=== PATIENT | female | born 1950 | race Caucasian/White ===

== ENCOUNTER 2018-04-11 09:49 | Day surgery (SDC) | payer OTHER ==
--- NOTE | 2018-04-09 22:40 | EKG ---
Test Date: 2018-04-09 Test Time: 15:24:18 Production Support Engineer: LUZ MEASUREMENT RESULTS: Intervals: Rate: 72 AR: 180 QRSD: 88 QT: 474 QTc: 519 Irene: P: 55 AR: 180 QRS: 26 T: 78 INTERPRETIVE STATEMENTS: Sinus rhythm with premature supraventricular complexes Possible Inferior infarct, age undetermined Prolonged QT Abnormal ECG Compared to ECG 10/11/2004 12:46:00 Atrial premature complex(es) now present Myocardial infarct finding now present Prolonged QT interval now present Electronically Signed On 04-09-18 22:39:25 CDT by Noe Patterson
[2018-04-11] MEDS ORDERED: Ringers Lactate 1,000 ML IV ONE (10:07)
[2018-04-11] MEDS ORDERED: PROPOFOL 200 MG/20 ML VIAL IV ONE (10:47)
[2018-04-11] MEDS ORDERED: LIDOCAINE 2% MPF 5 ML VIAL ONE (10:47)
[2018-04-11] MEDS ORDERED: MIDAZOLAM HCL 2 MG/2 ML INJ ONE (10:47)
[2018-04-11] MEDS ORDERED: FENTANYL CITR 100 MCG/2 ML ONE (10:48)
[2018-04-11] MEDS ORDERED: NEOSTIGMINE 1 MG/ML -5 ML SYRINGE ONE (10:50)
[2018-04-11] MEDS ORDERED: GLYCOPYRROLATE 0.2 MG/ML SYR ONE ×2 (10:50→10:51)
[2018-04-11] MEDS ORDERED: ROCURONIUM 50 MG/5 ML VIAL IV ONE (10:51)
[2018-04-11] MEDS: LIDOCAINE 1% W/EPI 1:100,000 MDV 50 ML VIAL ONE ×2 (11:01→11:56)
[2018-04-11] MEDS ORDERED: EPHEDRINE SULF 50 MG/5 ML SYR ONE (11:47)
[2018-04-11] MEDS ORDERED: DEXAMETHASONE 10 MG/ML VIAL ONE (11:52)
--- NOTE | 2018-04-11 11:59 | P.BOP ---
Preoperative diagnosis: inferior vestibule lesion Postoperative diagnosis: benign, likely fibroma Primary procedure: excision oral vestibular lesion Indirect [employer]man: NONE,NONE Estimated blood loss: <5ml Specimen: R inferior vestibule lesion Findings: path benign Anesthesia: General Complications: None Implants: none Fluids & blood products: crystalloid 800ml Transferred to: Recovery Room Condition: Good
--- NOTE | 2018-04-11 19:02 | OP ---
Date of Procedure: 04/11/2018 Surgeon: Karen Burton MD Preoperative Diagnosis: Right inferior gingival buccal lesion of the oral vestibule. Postoperative Diagnosis: Benign lesion, likely fibroma. Procedure: Excision of lesion with simple closure of the oral vestibule. Indication For Procedure: Ms. Pantoja is a 68-year-old who presented with a painful raised and irr itated appearing lesion, but refused in-office biopsy. The risks, benefits, and alternatives to proc edure were discussed with the patient and her family, who agreed to proceed. Description Of Procedure: The patient was brought to the operating room. She was placed under gener al anesthesia via oral endotracheal tube. The large bite block was placed between the patient's gums and the lower lip was retracted. A moderate 4-5 mm raised lesion was noted, but was not significant ly ulcerated and was somewhat less irritated in appearance compared to her initial presentation. The decision was made to proceed with biopsy or simple excision of the lesion to confirm diagnosis prior to performing a wider excision, the lesion was grasped with forceps and was cut with scissors at its base and sent to pathology. Direct pressure was applied to the site while awaiting the frozen secti on. 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 Electrocautery was then used to obtain hemostasis at the site, and the defect which was 5 x 8 mm was closed in a simple fashion using 4-0 chromic interrupted sutures. The area was then injected with local anesthetic to aid in postoperative pain control. Disposition: The patient to be discharged home later today in the care of her family and is instruct ed to avoid wearing her lower dentures for at least 1 week to allow for healing of the surgical site. She is also instructed in ap propriate oral care. ANTHONY/MODL Voice ID: [id number] Report ID: [id number]
== END 2018-04-11 13:30 | disposition home or self-care (01) ==
LOC: OR 09:49
PROVIDERS: ATTEND Otolaryngology
PROC: 0CB40ZZ Excision of Buccal Mucosa, Open Approach (ICD-10-PCS; principal; 2018-04-11 12:00)
DX: K13.70 Unspecified lesions of oral mucosa (principal); K08.89 Other specified disorders of teeth and supporting structures; I10 Essential (primary) hypertension; E78.00 Pure hypercholesterolemia, unspecified; E03.9 Hypothyroidism, unspecified; K21.9 Gastro-esophageal reflux disease without esophagitis; E55.9 Vitamin D deficiency, unspecified; Z87.891 Personal history of nicotine dependence; Z88.6 Allergy status to analgesic agent; Z88.1 Allergy status to other antibiotic agents
CPT/HCPCS: 40812; 88305; 88331; 93005; J1100; J2250; J2710; J3010

== ENCOUNTER 2019-04-30 06:18 | Day surgery (SDC) | payer OTHER ==
--- NOTE | 2019-04-28 14:47 | EKG ---
Test Date: 2019-04-28 Test Time: 14:20:26 Service Correspondent: LUZ MEASUREMENT RESULTS: Intervals: Rate: 72 CT: 182 QRSD: 88 QT: 394 QTc: 431 Lizemores: P: 56 CT: 182 QRS: 28 T: 7 INTERPRETIVE STATEMENTS: Normal sinus rhythm Nonspecific T wave abnormality Abnormal ECG Compared to ECG 04/09/2018 15:24:18 T-wave abnormality now present Atrial premature complex(es) no longer present Myocardial infarct finding no longer present Prolonged QT interval no longer present Electronically Signed On 04-28-19 14:47:05 CDT by Tariq Palmer
[2019-04-28 15:31] LABS: Absolute Lymphocytes (CBC) 1.1 K/uL (0.7-4.9); Eosinophils % 2.2 % (0-4.4); Hematocrit 32.6 % (36.0-45.0); Lymphocytes % 16.3 % (15.3-44.8); MPV 10.5 fL (7.6-11.3); Monocytes % 8.2 % (3.3-12.3); RBC Red Blood Cell Count 4.14 M/uL (3.86-4.86)
--- OUTSIDE RECORDS SUMMARY | 2019-04-30 06:22 | XMS REPORT | Clinical Summary ---
:1950 Author Organization [facility] Address [address] [place] [address] Care Team Providers Name Role Phone Provider, Unknown Primary Care Provider Unavailable Allergies Active Allergy Reactions Severity Noted Date Comments Cephalexin GI Intolerance 04/11/2019 Morphine Rash Low 04/11/2019 Medications Medication Sig Dispensed Refills Start Date End Date Status cholecalciferol, Take 2,000 0 Active vitamin D3, (VITAMIN Units by D3) 2,000 unit mouth daily. capsule capsule L.acidophilus-Bifido Take by 0 Active .longum (PROBIOTIC mouth. PEARLS) 15 mg (1 billion cell) capsule,delayed release(DR/EC) rosuvastatin Take 40 mg by 0 Active (CRESTOR) 40 MG mouth daily. tablet ezetimibe (ZETIA) 10 Take 10 mg by 0 Active mg tablet mouth daily. metoprolol succinate Take 25 mg by 0 Active XL (TOPROL-XL) 25 mg mouth daily. 24 hr tablet levothyroxine Take 1 tablet 30 tablet 0 04/15/2019 05/15/2019 Active (SYNTHROID, LEVOXYL) (175 mcg 175 mcg tablet total) by mouth daily for 30 days. pantoprazole Take 1 tablet 30 tablet 0 04/15/2019 05/15/2019 Active (PROTONIX) 40 MG EC (40 mg total) tablet by mouth daily for 30 days. aspirin (ECOTRIN) 81 Take 81 mg by 0 04/14/2019 Discontinued MG enteric coated mouth daily. tablet levothyroxine Take 300 mcg 0 04/14/2019 Discontinued (SYNTHROID, LEVOXYL) by mouth 300 mcg tablet every morning. Active Problems Problem Noted Date Gastrointestinal hemorrhage 04/11/2019 Melena 04/10/2019 Overview: Added automatically from request for surgery [id number] Encounters Date Type Specialty Care Team Description Telephone Gastroenterology Jacqueline Govea MA Telephone Gastroenterology Jacqueline Eldridge Surgery Gastroenterology Humberto Kauffman, SMALL BOWEL CAPSULE 9 Anesthesia General Surgery Spring, 9 Event Jessenia Pike CRNA Surgery General Surgery Humberto Kauffman, COLONOSCOPY W/ POLYPECTOMIES 9 Surgery General Surgery Humberto Kauffman, ESOPHAGOGASTRODUODENOSCOPY 9 MD (EGD) Anesthesia General Surgery Hua, 9 Event Roosevelt Garcia MD Orders Only General Internal Sabalbarino 9 Medicine , Tootie Solomon RN Hospital General Internal [facility], Gastrointestinal hemorrhage, unspecified gastrointestinal hemorrhage type (Primary Dx); 9 - Encounter Medicine MD Alyssa Severe anemia; Avilez, Elevated troponin; 9 MD Chrissy Baird Le, MD Gadiraju, [facility], DO after 04/29/2018 Family History Medical History Relation Name Comments Pulmonary embolism Mother Relation Name Status Comments Mother Social History Tobacco Use Types Packs/Day Years Used Date Former Smoker 1.5 50 1968 - 2012 Smokeless Tobacco: Never Used Alcohol Use Drinks/Week oz/Week Comments Never Alcohol Habits Answer Date Recorded How often do you have a drink containing alcohol? Never 04/11/2019 How many drinks containing alcohol do you have on a typical Not asked day when you are drinking? How often do you have six or more drinks on one occasion? Not asked Sex Assigned at Date Recorded Not on file Job Start Date Occupation Industry Not on file Not on file Not on file Travel History Travel Start Travel End No recent travel history available. Last Filed Vital Signs Vital Sign Reading Time Taken Blood Pressure 126/58 04/14/2019 11:55 AM CDT Pulse 90 04/14/2019 11:55 AM CDT Temperature 36.3 C (97.4 F) 04/14/2019 11:55 AM CDT Respiratory Rate 17 04/14/2019 11:55 AM CDT Oxygen Saturation 98% 04/14/2019 11:55 AM CDT Inhaled Oxygen Concentration - - Weight 115 kg (253 lb) 04/10/2019 9:58 PM CDT Height 165.1 cm (5' 5") 04/10/2019 9:58 PM CDT Body Mass Index 42.1 04/10/2019 9:58 PM CDT Plan of Treatment Health Maintenance Due Date Last Done Comments BREAST CANCER SCREENING 1999 COLONOSCOPY SCREENING 1999 SHINGLES VACCINES (#1) 1999 65+ PNEUMOCOCCAL VACCINE (1 of 2 - PCV13) 2014 INFLUENZA VACCINE 06/04/2019 Procedures Procedure Name Priority Date/Time Associated Comments Diagnosis HEMOGLOBIN & HEMATOCRIT Routine 04/14/2019 Results for 5:00 AM CDT this procedure are in the results section. SMALL BOWEL CAPSULE 04/13/2019 Melena 1:15 PM CDT US DUPLEX VENOUS LOWER EXTREMITY Routine 04/13/2019 Results for BILATERAL 9:30 AM CDT this procedure are in the results section. ECHOCARDIOGRAM 2D COMPLETE W Routine 04/13/2019 Results for MMODE SPECTRAL COLOR DOPPLER 8:45 AM CDT this procedure (43421) are in the results section. HEMOGLOBIN & HEMATOCRIT Routine 04/13/2019 Results for 4:45 AM CDT this procedure are in the results section. ESTIMATED GFR Routine 04/13/2019 Results for 4:00 AM CDT this procedure are in the results section. PHOSPHORUS LEVEL Routine 04/13/2019 Results for 4:00 AM CDT this procedure are in the results section. MAGNESIUM LEVEL Routine 04/13/2019 Results for 4:00 AM CDT this procedure are in the results section. BASIC METABOLIC PANEL Routine 04/13/2019 Results for 4:00 AM CDT this procedure are in the results section. HEMOGLOBIN & HEMATOCRIT STAT 04/12/2019 Results for 5:37 PM CDT this procedure are in the results section. HEMOGLOBIN & HEMATOCRIT Timed 04/12/2019 Results for 5:37 PM CDT this procedure are in the results section. SURGICAL PATHOLOGY REQUEST Routine 04/12/2019 Results for 9:40 AM CDT this procedure are in the results section. COLONOSCOPY 04/12/2019 Melena 8:50 AM CDT ESTIMATED GFR Timed 04/12/2019 Results for 4:00 AM CDT this procedure are in the results section. PHOSPHORUS LEVEL Timed 04/12/2019 Results for 4:00 AM CDT this procedure are in the results section. MAGNESIUM LEVEL Timed 04/12/2019 Results for 4:00 AM CDT this procedure are in the results section. BASIC METABOLIC PANEL Timed 04/12/2019 Results for 4:00 AM CDT this procedure are in the results section. HEMOGLOBIN & HEMATOCRIT Timed 04/12/2019 Results for 4:00 AM CDT this procedure are in the results section. T4, FREE Routine 04/11/2019 Results for 4:33 PM CDT this procedure are in the results section. ESTIMATED GFR Routine 04/11/2019 Results for 4:33 PM CDT this procedure are in the results section. PROTHROMBIN TIME WITH INR Routine 04/11/2019 Results for 4:33 PM CDT this procedure are in the results section. THYROID STIMULATING HORMONE Routine 04/11/2019 Results for 4:33 PM CDT this procedure are in the results section. MAGNESIUM LEVEL Routine 04/11/2019 Results for 4:33 PM CDT this procedure are in the results section. PHOSPHORUS LEVEL Routine 04/11/2019 Results for 4:33 PM CDT this procedure are in the results section. BASIC METABOLIC PANEL Routine 04/11/2019 Results for 4:33 PM CDT this procedure are in the results section. HEMOGLOBIN & HEMATOCRIT Routine 04/11/2019 Results for 4:14 PM CDT this procedure are in the results section. TROPONIN Timed 04/11/2019 Results for 4:14 PM CDT this procedure are in the results section. TRANSFUSE RED BLOOD CELLS STAT 04/11/2019 3:14 PM CDT ESOPHAGOGASTRODUODENOSCOPY (EGD) 04/11/2019 Melena 12:00 PM CDT SURGICAL PATHOLOGY REQUEST Routine 04/11/2019 Results for 9:28 AM CDT this procedure are in the results section. TROPONIN Timed 04/11/2019 Results for 4:02 AM CDT this procedure are in the results section. TROPONIN Timed 04/11/2019 Results for 1:02 AM CDT this procedure are in the results section. PREPARE RBC STAT 04/11/2019 Results for 12:43 AM CDT this procedure are in the results section. PREPARE RBC STAT 04/11/2019 Results for 12:43 AM CDT this procedure are in the results section. TYPE AND SCREEN STAT 04/11/2019 Results for 12:43 AM CDT this procedure are in the results section. ECG ED PRELIMINARY Routine 04/10/2019 Results for INTERPRETATION 11:32 PM CDT this procedure are in the results section. ID CRITICAL CARE, E/M 30-74 Routine 04/10/2019 Results for MINUTES 11:32 PM CDT this procedure are in the results section. SMEAR REVIEW STAT 04/10/2019 Results for 11:32 PM CDT this procedure are in the results section. ESTIMATED GFR STAT 04/10/2019 Results for 11:32 PM CDT this procedure are in the results section. B NATRIURETIC PEPTIDE STAT 04/10/2019 Results for 11:32 PM CDT this procedure are in the results section. TROPONIN STAT 04/10/2019 Results for 11:32 PM CDT this procedure are in the results section. COMPREHENSIVE METABOLIC PANEL STAT 04/10/2019 Results for 11:32 PM CDT this procedure are in the results section. HC COMPLETE BLD COUNT W/AUTO STAT 04/10/2019 Results for DIFF 11:32 PM CDT this procedure are in the results section. XR CHEST 2 VW STAT 04/10/2019 Results for 10:34 PM CDT this procedure are in the results section. ECG 12-LEAD STAT 04/10/2019 Results for 9:43 PM CDT this procedure are in the results section. after 04/29/2018 Results Hemoglobin & hematocrit (04/14/2019 5:00 AM CDT)Only the most recent of6 resultswithin the time period is included. HGB 8.7 (L) 12.0 - 16.0 g/dL [facility] HCT 30.5 (L) 37.0 - 47.0 % [facility] Specimen Blood Performing Organization Address City/State/Zipcode Phone Number [facility] DEPARTMENT OF PATHOLOGY AND [address] [place] [address] [place] [address] Us duplex venous lower extremity (04/13/2019 9:30 AM CDT) Specimen Narrative Performed At [facility] Vascular Ultrasound Laboratory Lower Extremity Venous Report [id number] [address] Pat.Name:YIMI DIEGO Pat.ID:[id number] .Date: 04/13/2019 Refer.MD:GIORGIO CARDOSO DO Exam Time: 8:15:00 AMStudy Type:LE Venous Height:65inWeight: 253lb BSA: 2.19 m2 DOBAge:1950,69Y Sex: FEMALESonogrphr: ABIOLA Daly Pat. Stat.:Inpatient Room:[address] TapeVol: ML, CPT - 4: 41475 Echo Event ID:[id number] Order ID:[id number] Reason for Study:Bilateral lower extremities swelling. History of HTN and HLD. Procedures:B-flow imaging, Grayscale/2D, Pulsed wave Doppler Race: SUMMARY: DUPLEX SCAN OBSERVATIONS Deep VeinsSuperficial Veins RightLeft RightLeft GSV (prox) NormalNormal CFV Normal Normal (above knee) Femoral Normal Normal GSV (dist) Normal Normal Profunda Normal Normal (below knee) Popliteal Normal Normal PT (prox) Normal NormalSSV Normal Normal PT (dist) Normal Normal Peroneal Normal Normal RIGHT: There is normal compressibility with no evidence of echogenic material noted within the lumen of the visualized veins.Colorflow and Doppler signals are normal. LEFT: There is normal compressibility with no evidence of echogenic material noted within the lumen of the visualized veins.Colorflow and Doppler signals are normal. PRELIMINARY FINDINGS 1. No evidence of venous thrombosis in the visualized veins. PHYSICIAN INTERPRETATION Venous examination of the both lower extremities demonstrated no evidence of venous thrombosis in the visualized veins.Normal compressibility and augmentation of all veins visualized. Signed 04/13/2019 08:26 PM Rk Yarbrough MD, RPVI Procedure Note Interface, Radiology Results In - 04/13/2019 8:26 PM CDT Vascular Ultrasound Laboratory Lower Extremity Venous Report [address] [place] [address] Pat.Name: YIMI DIEGO Pat.ID: [id number] St.Date: 04/13/2019 Refer.: GIORGIO CARDOSO DO Exam Time: 8:15:00 AM Study Type:LE Venous Height: 65in Weight: 253lb BSA: 2.19 m2 Age: 5 1950,69Y Sex: FEMALE Sonogrphr: ABIOLA Daly Pat. Stat.:Inpatient Room: [address] Tape Vol: ML, CPT - 4: 29018 Echo Event ID:[id number] Order ID: [id number] Reason for Study:Bilateral lower extremities swelling. History of HTN and HLD. Procedures:B-flow imaging, Grayscale/2D, Pulsed wave Doppler Race: SUMMARY: DUPLEX SCAN OBSERVATIONS Deep Veins Superficial Veins Right Left Right Left GSV (prox) Normal Normal CFV Normal Normal (above knee) Femoral Normal Normal GSV (dist) Normal Normal Profunda Normal Normal (below knee) Popliteal Normal Normal PT (prox) Normal Normal SSV Normal Normal PT (dist) Normal Normal Peroneal Normal Normal RIGHT: There is normal compressibility with no evidence of echogenic material noted within the lumen of the visualized veins. Colorflow and Doppler signals are normal. LEFT: There is normal compressibility with no evidence of echogenic material noted within the lumen of the visualized veins. Colorflow and Doppler signals are normal. PRELIMINARY FINDINGS 1. No evidence of venous thrombosis in the visualized veins. PHYSICIAN INTERPRETATION Venous examination of the both lower extremities demonstrated no evidence of venous thrombosis in the visualized veins. Normal compressibility and augmentation of all veins visualized. Signed 04/13/2019 08:26 PM Rk Yarbrough MD, VI Performing Organization Address City/State/Zipcode Phone Number [facility] [address] [place] [address] Echocardiogram complete w contrast and 3D if needed (04/13/2019 8:45 AM CDT) Specimen Narrative Performed At [facility] Echocardiography Report [address] [place] [address] Pat.Name:YIMI DIEGO.ID:[id number] .Date: 04/13/2019 Refer.MD:GIORGIO CARDOSO DO Exam Time: 7:08:00 AMStudy Type:Routine Echo Height:65inWeight: 253lb BSA: 2.19 m2 DOBAge:1950,69Y Sex: FEMALEBP:108/51 HR:72 bpmSonogrphr: Kandace Mcqueen RUST Pat. Stat.:Inpatient Room:[facility] Study Status:Final Echo Event ID:[id number] Order ID:[id number] Reason for Study:Troponin elevation Procedures:2D Echo, Colorflow Doppler, Intravenous Optison Contrast Race:C SUMMARY: LV EF is normal.Estimated EF is 60-64%. RV systolic function is normal. Estimated PA systolic pressure is appx 31 mmHg, assuming a mean RAP of 10 mmHg. FINDINGS: LV: LV size is normal. Concentric left ventricular remodeling. LVEF is normal. Overall wall motion is normal. Estimated EFis 60-64%. RV: RV size is normal. RV systolic function is normal. LA: LA size is normal. RA: RA size is normal. AO: Aortic root diameter is normal. CALLIE: No pericardial effusion. AV: Aortic valve not well seen. MV: Mild mitral annular calcification. Mild mitral regurgitation. PV: Pulmonic valve not well seen. TV: No structural TV abnormalities noted. A trace of tricuspid regurgitation Other:Estimated PA systolic pressure is appx 31 mmHg, assuming a meanRAP of 10 mmHg. MEASUREMENTS: 2D Parasternal [place] Ao An1.6 cmIVSd 1 cm Ao Rtd 2.8 cmIndex1.3 cm/m LVPWd1.2 cm LVOT 1.9 cmLA Ds3.9 cm LVIDd4.9 cmIndex2.2 cm/m LV Jbqu480.5 g(87-129) LVIDs2.9 cmLVM Index 91.6 g/m2 LV%fs 40.8 % RWT0.5 LA Sng Plane LA Area 18.8 cm2(8.8-23.4) LA Vol48.9 ml Index22.3 ml/m LA LngAx 6.2 cm RA Sng Plane RA Area 19.6 cm2(8.3-19.5) RA Vol54.4 ml Index24.8 ml/m RA LngAx 5.9 cm DOPPLER LVOT For Flow LVOT Area2.8 cm2 LVOT SV 62.7 ml DFZGmdOyu299.5 cm/sHR74.6 bpm LVOTpkPG 4.3 mmHgLVOT CO4.7 l/min LVOTmnPG 2.3 mmHgLVOT CI2.1 l/m/m2 LVOT TVI22.1 cm Signed 04/13/2019 02:04 PM Abby Lynn MD Procedure Note Interface, Radiology Results In - 04/13/2019 2:05 PM CDT Echocardiography Report [address] [place] [address] Pat.Name: YIMI DIEGO Pat.ID: [id number] .Date: 04/13/2019 Refer.MD: GIORGIO CARDOSO DO Exam Time: 7:08:00 AM Study Type:Routine Echo Height: 65in Weight: 253lb BSA: 2.19 m2 Age: 6 1950,69Y Sex: FEMALE BP: 108/51 HR: 72 bpm Sonogrphr: IGGY Christianson Pat. Stat.:Inpatient Room: [facility] Study Status:Final Echo Event ID:[id number] Order ID: [id number] Reason for Study:Troponin elevation Procedures:2D Echo, Colorflow Doppler, Intravenous Optison Contrast Race: C SUMMARY: LV EF is normal.Estimated EF is 60-64%. RV systolic function is normal. Estimated PA systolic pressure is appx 31 mmHg, assuming a mean RAP of 10 mmHg. FINDINGS: LV: LV size is normal. Concentric left ventricular remodeling. LV EF is normal. Overall wall motion is normal. Estimated EF is 60-64%. RV: RV size is normal. RV systolic function is normal. LA: LA size is normal. RA: RA size is normal. AO: Aortic root diameter is normal. CALLIE: No pericardial effusion. AV: Aortic valve not well seen. MV: Mild mitral annular calcification. Mild mitral regurgitation. PV: Pulmonic valve not well seen. TV: No structural TV abnormalities noted. A trace of tricuspid regurgitation Other: Estimated PA systolic pressure is appx 31 mmHg, assuming a mean RAP of 10 mmHg. MEASUREMENTS: 2D Parasternal [place] Ao An 1.6 cm IVSd 1 cm Ao Rtd 2.8 cm Index 1.3 cm/m LVPWd 1.2 cm LVOT 1.9 cm LA Ds 3.9 cm LVIDd 4.9 cm Index 2.2 cm/m LV Mass 200.5 g (87-129) LVIDs 2.9 cm LVM Index 91.6 g/m2 LV%fs 40.8 % RWT 0.5 LA Sng Plane LA Area 18.8 cm2 (8.8-23.4) LA Vol 48.9 ml Index 22.3 ml/m LA LngAx 6.2 cm RA Sng Plane RA Area 19.6 cm2 (8.3-19.5) RA Vol 54.4 ml Index 24.8 ml/m RA LngAx 5.9 cm DOPPLER LVOT For Flow LVOT Area 2.8 cm2 LVOT SV 62.7 ml LVOTpkVel 103.5 cm/s HR 74.6 bpm LVOTpkPG 4.3 mmHg LVOT CO 4.7 l/min LVOTmnPG 2.3 mmHg LVOT CI 2.1 l/m/m2 LVOT TVI 22.1 cm Signed 04/13/2019 02:04 PM Abby Lynn MD Performing Organization Address [facility] Cent[facility]ode Phone Number [facility] [address] [place] [address] Estimated GFR (04/13/2019 4:00 AM CDT)Only the most recent of4 resultswithin the time period is included. Estimated GFR 45 (A) mL/min/1.73 [facility] Comment: HOSPITAL CatergoryUnitsInterpretation G1 >=90 Normal or high G2 60-89Mildly decreased A3k56-36Shcwvg to moderately decreased O0x43-80Rvmcesespp to severely decreased G4 15-29Severely decreased G5 <15Kidney failure The eGFR was calculated using the Chronic Kidney Disease Epidemiology Collaboration (CKD-EPI) equation. Interpretation is based on recommendations of the National Kidney Foundation-Kidney Disease Outcomes Quality Initiative (NKF-KDOQI) published in 2014. Specimen Plasma specimen Performing Organization Address [facility] Phone Number [facility] DEPARTMENT OF PATHOLOGY AND [address] [place] [phone] [place] [phone] Phosphorus level (04/13/2019 4:00 AM CDT)Only the most recent of3 resultswithin the time period is included. Phosphorus 4.6 (H) 2.4 - 4.5 mg/dL [facility] Specimen Plasma specimen Performing Organization Address [facility] Centercode Phone Number [facility] DEPARTMENT OF PATHOLOGY AND [address] [place] [phone] Magnesium level (04/13/2019 4:00 AM CDT)Only the most recent of3 resultswithin the time period is included. Magnesium 2.1 1.6 - 2.4 mg/dL [facility] Specimen Plasma specimen Performing Organization Address [facility] Centercode Phone Number [facility] DEPARTMENT OF PATHOLOGY AND [address] [place] [phone] [place] [address] Basic metabolic panel (04/13/2019 4:00 AM CDT)Only the most recent of3 resultswithin the time period is included. Pathologist [facility] Sodium 142 135 - 148 mEq/L [facility] Potassium 3.9 3.5 - 5.0 mEq/L [facility] Chloride 104 98 - 112 mEq/L [facility] CO2 23 (L) 24 - 31 mEq/L [facility] Anion gap 15@ANIO 7 - 15 mEq/L [facility] BUN 10 8 - 23 mg/dL [facility] Creatinine 1.21 (H) 0.50 - 0.90 mg/dL [facility] Glucose 88 65 - 99 mg/dL [facility] Calcium 8.9 8.8 - 10.2 mg/dL [facility] Specimen Plasma specimen Performing Organization Address [facility] Centercoid Phone Number [facility] DEPARTMENT OF PATHOLOGY AND [address] [place] [phone] Surgical pathology request (04/12/2019 9:40 AM CDT)Only the most recent of2 resultswithin the time period is included. Pathologist [facility] DEPARTMENT OF PATHOLOGY AND GENOMIC MEDICINE Surgical pathology See link below [facility] DEPARTMENT OF report for PDF Lab PATHOLOGY AND Report GENOMIC MEDICINE Result status This is Final [facility] DEPARTMENT OF Report for PATHOLOGY AND [id number] GENOMIC MEDICINE Specimen Performing Organization Address [facility] Centercode Phone Number [facility] DEPARTMENT OF PATHOLOGY AND [address] [place] [phone] GENOMIC MEDICINE Prothrombin time with INR (04/11/2019 4:33 PM CDT) Pathologist [facility] Prothrombin time 14.0 11.5 - 14.5 [facility] INR 1.1 [place] Comment: ROMAN CATHOLIC [facility] International Normalized Ratio (INR) is a therapeutic HOSPITAL monitoring tool for patients who are stable on oral anticoagulant therapy. An INR of 2.0-3.0 is suggested for deep vein thrombosis/pulmonary embolism. Specimen Blood Performing Organization Address [facility] Centercode Phone Number [facility] DEPARTMENT OF PATHOLOGY AND [address] [place] [address] Thyroid stimulating hormone (04/11/2019 4:33 PM CDT) [facility] TSH 30.54 (H) 0.27 - 4.20 uIU/mL [facility] Specimen Plasma specimen Performing Organization Address [facility] Centercode Phone Number [facility] DEPARTMENT OF PATHOLOGY AND [address] [place] [address] T4, free (04/11/2019 4:33 PM CDT) [facility] T4, free 1.2 0.9 - 1.7 ng/dL [facility] Specimen Plasma specimen Performing Organization Address [facility] Phone Number [facility] DEPARTMENT OF PATHOLOGY AND [address] [place] [address] Troponin (04/11/2019 4:14 PM CDT)Only the most recent of4 resultswithin the time period is included. [facility] Troponin 0.347 (H) 0.000 - 0.040 [facility] Comment: ng/mL [facility] changed methodology effective: 03/10/2019 at 10:00 am The new method has a 99th percentile cutoff of 0.040 ng/mL Specimen Plasma specimen Performing Organization Address [facility] Phone Number [facility] DEPARTMENT OF PATHOLOGY AND [address] [place] [address] Transfuse RBC (04/11/2019 3:14 PM CDT)Only the most recent of2 resultswithin the time period is included.Prepare RBC, 1 Units (04/11/2019 12:43 AM CDT)Only the most recent of2 resultswithin the time period is included. [facility] Product name Red Blood Cells [facility] -1, [facility] Unit number [id number] [facility] Product code [id number] [facility] Dispense status Transfused [facility] Blood expiration [id number] [facility] Blood type code 6200 [facility] Blood type A POSITIVE [facility] Specimen Blood Performing Organization Address City/[facility] Centercode Phone Number [facility] DEPARTMENT OF PATHOLOGY AND [address] [place] [phone] [address] Type and screen (04/11/2019 12:43 AM CDT) ABO grouping A [facility] Rh type POS [facility] Antibody screen (gel) NEG [facility] Specimen Blood Performing Organization Address [facility] Centercode Phone Number [facility] DEPARTMENT OF PATHOLOGY AND [address] [place] [id number] ECG ED Preliminary Interpretation - Not an Order (04/10/2019 11:32 PM CDT) Narrative Performed At Alyssa Cuenca MD 04/11/20194:25 AM ECG ED Preliminary Interpretation - Not an Order Performed by: Alyssa Cuenca MD Authorized by: Alyssa Cuenca MD ECG reviewed by ED Physician in the absence of a assistant auditor: yes Interpretation: Interpretation: abnormal Rate: ECG rate:89 ECG rate assessment: normal Rhythm: Rhythm: sinus rhythm Ectopy: Ectopy: none QRS: QRS axis:Normal QRS intervals:Normal Conduction: Conduction: normal ST segments: ST segments:Non-specific T waves: T waves: non-specific CRITICAL CARE (04/10/2019 11:32 PM CDT) Narrative Performed At Alyssa Cuenca MD 04/11/20194:25 AM Critical Care Performed by: Alyssa Cuenca MD Authorized by: Alyssa Cuenca MD Critical care provider statement: Critical care time (minutes):35 Critical care time was exclusive of:Separately billable procedures and treating other patients and teaching time Critical care was necessary to treat or prevent imminent or life-threatening deterioration of the following conditions: GI hemorrhage Critical care was time spent personally by me on the following activities:Development of treatment plan with patient or surrogate, discussions with consultants, discussions with primary provider, evaluation of patient's response to treatment, examination of patient, review of old charts, re-evaluation of patient's condition, pulse oximetry, ordering and review of radiographic studies, ordering and review of laboratory studies and ordering and performing treatments and interventions Tawanda 'yes' if you are taking over critical care for this patient from another provider.: no Smear review (04/10/2019 11:32 PM CDT) Platelet slide review Iris adequate [facility] Anisocytosis Moderate [facility] Polychromasia Moderate [facility] Enlarged platelets Moderate (A) [facility] Specimen Performing Organization Address City/State/Zipcode Phone Number [facility] DEPARTMENT OF PATHOLOGY AND [address] [place] [address] GENOMIC MEDICINE [facility] [address] [place] [address] CBC with platelet and differential (04/10/2019 11:32 PM CDT) WBC 9.61 4.50 - 11.00 [facility] RBC 2.84 (L) 4.20 - 5.50 [facility] HGB 6.7 (LL) 12.0 - 16.0 [facility] Comment: g/dL [facility] HGB results called to and read back by DUSTIN DURAN/ELIZ at 04/10/201923: 55 by [email or web address]. HCT 24.4 (L) 37.0 - 47.0 % [facility] MCV 85.9 82.0 - 100.0 [facility] MCH 23.6 (L) 27.0 - 34.0 [facility] MCHC 27.5 (L) 31.0 - 37.0 [facility] RDW - SD 50.9 37.0 - 55.0 [facility] MPV 12.1 8.8 - 13.2 [facility] Platelet count 238 150 - 400 [facility] Nucleated RBC 0.00 /100 WBC [facility] Neutrophils 69.2 (H) 39.0 - 69.0 % [facility] Lymphocytes 21.0 (L) 25.0 - 45.0 % [facility] Monocytes 7.1 0.0 - 10.0 % [facility] Eosinophils 1.8 0.0 - 5.0 % [facility] Basophils 0.5 0.0 - 1.0 % [facility] Immature granulocytes 0.4Comment: 0.0 - 1.0 % [facility] "Immature HOSPITAL granulocytes" (promyelocytes, myelocytes, metamyelocytes) Specimen Blood Performing Organization Address City/State/Zipcode Phone Number [facility] DEPARTMENT OF PATHOLOGY AND [address] [place] [address] [address] B natriuretic peptide (04/10/2019 11:32 PM CDT) BNP 89 0 - 100 pg/mL [facility] Specimen Blood Performing Organization Address City/[facility]/Zipcode Phone Number [facility] DEPARTMENT OF PATHOLOGY AND [address] [place] [id number] [address] Comprehensive metabolic panel (04/10/2019 11:32 PM CDT) Pathologist [facility] Sodium 139 135 - 148 [facility] mEq/L [facility] Potassium 3.7 3.5 - 5.0 [facility] mEq/L [facility] Chloride 101 98 - 112 mEq/L [facility] CO2 23 (L) 24 - 31 mEq/L [facility] Anion gap 15@ANIO 7 - 15 mEq/L [facility] BUN 17 8 - 23 mg/dL [facility] Creatinine 1.11 (H) 0.50 - 0.90 [facility] mg/dL HOSPITAL Glucose 117 (H) 65 - 99 mg/dL [facility] Calcium 9.4 8.8 - 10.2 [facility] mg/dL [facility] Protein 7.7 6.3 - 8.3 g/dL [facility] Comment: HOSPITAL [place] 4.6-7.0 g/dL 1 week 4.4-7.6 g/dL 7 months-1year5.1-7.3 g/dL 1-2 years5.6-7.5 g/dL >3 years6.0-8.0 g/dL 18-150 6.3-8.3 g/dL Albumin 4.0 3.5 - 5.0 g/dL [facility] A/G ratio 1.1 0.7 - 3.8 [facility] Alkaline phosphatase 83 35 - 104 U/L [facility] AST 29 10 - 35 U/L [facility] ALT 27 5 - 50 U/L [facility] Total bilirubin 0.3 0.0 - 1.2 [facility] mg/dL HOSPITAL Specimen Plasma specimen Performing Organization Address City/[facility]/Zipcode Phone Number [facility] DEPARTMENT OF PATHOLOGY AND [address] [place] [address] GENOMIC MEDICINE [facility] [address] [place] [address] XR Chest 2 Vw (04/10/2019 10:34 PM CDT) Specimen Narrative Performed At EXAMINATION: XR CHEST 2 VW [facility] CLINICAL HISTORY: Shortness of breath COMPARISON:None. IMPRESSION: The lungs are clear. No pleural effusion or pneumothorax. Cardiac silhouette is mildly enlarged. Thoracic aorta atherosclerotic calcifications. Diffuse osteopenia. No acute osseous abnormalities. [id number] Procedure Note Hm Interface, Radiology Results Incoming - 04/10/2019 10:47 PM CDT EXAMINATION: XR CHEST 2 VW CLINICAL HISTORY: Shortness of breath COMPARISON: None. IMPRESSION: The lungs are clear. No pleural effusion or pneumothorax. Cardiac silhouette is mildly enlarged. Thoracic aorta atherosclerotic calcifications. Diffuse osteopenia. No acute osseous abnormalities. [id number] Performing Organization Address [facility] Phone Number [facility] [address] [place] [address] ECG 12 lead (04/10/2019 9:43 PM CDT) Ventricular rate 89 [facility] MUSE Atrial rate 89 [facility] MUSE ID interval 172 [facility] MUSE QRSD interval 82 [facility] MUSE QT interval 394 [facility] QTC interval 479 [facility] MUSE P axis 1 56 HM MUSE QRS axis 1 34 [facility] MUSE T wave axis 38 [facility] MUSE EKG impression Normal sinus [facility] MUSE rhythm-Nonspecific ST and T wave abnormality-Abnormal ECG-No previous ECGs available-Electronicall y Signed By Keny Gonzáles MD ([id number]) on 04/12/2019 4:38:51 PM Specimen Narrative Performed At Performing Organization Address City/[facility]/Zipcode Phone Number [facility] MUSE [address] [place] [address] after 04/29/2018 Insurance Payer Benefit Plan / Subscriber ID Effective Dates Phone Address Type Group MEDICARE MEDICARE PART A AND xxxxxxxxxxx 2014-[place], [place] Medicare B t AETNA A[facility]NA [facility] x[facility] 2013-[place] Advance Directives Patient has advance care planning documents on file. For more information, please contact:Immanuel Gaston[address] [place] [phone]
[2019-04-30] MEDS ORDERED: Ringers Lactate 1,000 ML IV ONE (06:51)
[2019-04-30] MEDS ORDERED: PROPOFOL 200 MG/20 ML VIAL IV ONE (07:14)
[2019-04-30] MEDS ORDERED: FENTANYL CITR 100 MCG/2 ML ONE (07:14)
[2019-04-30] MEDS ORDERED: LIDOCAINE 2% MPF 5 ML VIAL ONE (07:15)
[2019-04-30] MEDS ORDERED: ONDANSETRON 4 MG/2 ML VIAL ONE (07:16)
[2019-04-30] MEDS ORDERED: ROCURONIUM 50 MG/5 ML VIAL IV ONE (07:16)
[2019-04-30] MEDS ORDERED: LIDOCAINE 1% W/EPI 1:100,000 MDV 50 ML VIAL ONE (07:22)
--- NOTE | 2019-04-30 08:03 | P.BOP ---
Preoperative diagnosis: oral cavity mass Postoperative diagnosis: same Primary procedure: excision without closure, oral vestible, 1.5cm defect X Ray Control Equipment Repairer: NONE,NONE Estimated blood loss: <2ml Specimen: lower GB sulcus, suture tao anterior aspect, fresh to path Anesthesia: General Complications: None Implants: none Fluids & blood products: see anesthesia records Transferred to: Recovery Room Condition: Good
--- NOTE | 2019-04-30 17:25 | OP ---
Date of Procedure: 04/30/2019 Surgeon: Karen Burton MD Preoperative Diagnosis: Recurrent mouth lesion. Postoperative Diagnosis: Recurrent mouth lesion. Pathology pending. Prior pathology, abnormal lymph ocyte infiltration. Indication For Procedure: Ms. Pantoja previously underwent a biopsy of the right lower gingiva buc sameer sulcus adjacent to the midline for presumed dental ulcer with concern for possible squamous cell carcinoma. The biopsy showed abnormal lymphocyte infiltration and the area initially healed without issue. Several months later, she presented with recurrence of the lesion with notable induration, ul ceration, and pain. She desired rebiopsy and excision of the lesion for further analysis. In other clinical information, the patient was recently hospitalized in [place] for severe anemia and required transfusion with 3 units of packed red cells. The exact cause of her anemia is uncertain. She did undergo colonoscopy which, showed a polyp and is pending re-evaluation for that. Description Of Procedure: The patient was brought to the operating room. She was placed under gener al anesthesia via LMA. The bite block was placed, the lower lip was retracted and an approximately 8 mm indurated mucosal lesion in the gingival buccal sulcus just right of midline was identified. The Bovie electrocautery was used to excise full-thickness mucosa with a narrow mucosal margin. A sutur e was placed at the anterior most aspect and specimen was sent fresh to pathology for further evaluat ion. Bleeding was controlled with Bovie electrocautery and direct pressure. The area was approximat leydi 1.5 cm and after consideration was left open to heal by granulation. Blood Loss: Nil. Disposition: The patient returned to care of anesthesia for awakening and extubation in the operatin g room and will be discharged home later today and follow up with Dr. Burton in about 2 weeks for di scussion of pathology and evaluation of wound healing, local wound care including routine oral care, soft diet and liquid diet are discussed with the patient's daughter. ANTHONY/LAURA Voice ID: [id number] Report ID: [id number]
== END 2019-04-30 09:15 | disposition home or self-care (01) ==
LOC: OR 06:18
PROVIDERS: ATTEND Otolaryngology
PROC: 0CB6XZZ Excision of Lower Gingiva, External Approach (ICD-10-PCS; principal; 2019-04-30 07:30)
DX: K13.79 Other lesions of oral mucosa (principal); K08.89 Other specified disorders of teeth and supporting structures; Z87.891 Personal history of nicotine dependence; E03.9 Hypothyroidism, unspecified; E55.9 Vitamin D deficiency, unspecified; E78.00 Pure hypercholesterolemia, unspecified; I10 Essential (primary) hypertension; Z79.899 Other long term (current) drug therapy
CPT/HCPCS: 41825; 93005; 85025; 36415; 88305; J2704; J3010; J2405

== ENCOUNTER 2022-05-22 22:21 | Emergency (ER) | payer OTHER ==
--- NOTE | 2022-05-22 23:36 | EDPHYS ---
Physician Documentation [facility] Name: Carla Pantoja Age: 72 yrs Sex: Female : 1950 Arrival Date: 05/22/2022 Time: 22:24 Bed Waiting Private MD: ED Physician Bruno Jessica HPI: 05/22 22:41 This 72 yrs old Female presents to ER via Ambulatory with complaints of Head rn Injury-Adult, Headache. 23:33 The patient or guardian reports pain, tenderness. The complaints affect the top of rn head. Context of injury: The problem was sustained at home, resulted from a direct blow, a heavy object, a solid object. Onset: The symptoms/episode began/occurred today. Severity of symptoms: At their worst the symptoms were mild, in the emergency department the symptoms are unchanged. The patient has not experienced similar symptoms in the past. The patient has not recently seen a physician. Pt reports lawn equipment, either weed eater or edger, fell on her head while in shed, no LOC, not on blood thinners, tylenol didn't help pain. Remembers all events. NO focal neuro complaints. . Historical: - Allergies: 22:36 Morphine; hb - Immunization history:: Adult Immunizations up to date. - Social history:: Smoking status: Patient denies any tobacco usage or history of. - Family history:: not pertinent. - Hospitalizations: : No recent hospitalization is reported. ROS: 23:33 Constitutional: Negative for fever, chills, and weight loss, Neck: Negative for injury, rn pain, and swelling, Cardiovascular: Negative for chest pain, palpitations, and edema, Respiratory: Negative for shortness of breath, cough, wheezing, and pleuritic chest pain, Abdomen/GI: Negative for abdominal pain, nausea, vomiting, diarrhea, and constipation, Back: Negative for injury and pain, MS/Extremity: Negative for injury and deformity, Skin: Negative for injury, rash, and discoloration, Neuro: + headache Exam: 23:33 Constitutional: This is a well developed, well nourished patient who is awake, alert, rn and in no acute distress. Head/Face: Normocephalic, mild tenerness top of head, no open wounds Eyes: Pupils equal round and reactive to light, extra-ocular motions intact.Periorbital areas with no swelling, redness, or edema. Neck: No midline tenderness Neuro: Awake and alert, GCS 15, oriented to person, place, time, and situation. Cranial nerves II-XII grossly intact. Motor strength 5/5 in all extremities. Sensory grossly intact. Cerebellar exam normal. Normal gait. Vital Signs: 22:33 BP 174 / 77; Pulse 91; Resp 16; Temp 97.4; Pulse Ox 100% on R/A; Weight 110.68 kg; hb Height 5 ft. 5 in. (165.10 cm); Pain 5/10; 22:33 Body Mass Index 40.60 (110.68 kg, 165.10 cm) hb Pio Coma Score: 23:33 Eye Response: spontaneous(4). Verbal Response: oriented(5). Motor Response: obeys rn commands(6). Total: 15. 23:33 Eye Response: spontaneous(4). Verbal Response: oriented(5). Motor Response: obeys rn commands(6). Total: 15. MDM: 22:31 Patient medically screened. rn 23:33 Differential diagnosis: Contusion of Hematoma on Intracranial bleed- Concussion rn cerebral contusion. Data reviewed: vital signs, nurses notes, radiologic studies, CT scan, and as a result, I will discharge patient. Counseling: I had a detailed discussion with the patient and/or guardian regarding: the historical points, exam findings, and any diagnostic results supporting the discharge/admit diagnosis, radiology results, the need for outpatient follow up, to return to the emergency department if symptoms worsen or persist or if there are any questions or concerns that arise at home. Response to treatment: the patient's symptoms have mildly improved after treatment, and as a result, I will discharge patient. Special discussion: Based on the patient's history, exam and DX evaluation, there is no indication for emergent intervention or inpatient [place]. It is understood by the patient/guardian that if the SXs persist or worsen they need to return immediately for re-evaluation. I discussed with the patient/guardian in detail that at this point there is no indication for admission to the hospital. It is understood, however, that if the symptoms persist or worsen the patient needs to return immediately for re-evaluation. ED course: CT head neg for acute traumatic finding. . 05/22 22:36 Order name: CT Head Brain wo Cont rn Administered Medications: No medications were administered Disposition Summary: 05/22/22 23:35 Discharge Ordered Location: Home rn Problem: new rn Symptoms: have improved rn Condition: Stable rn Diagnosis - Unspecified injury of head, initial encounter rn Followup: rn - With: Private Physician - When: As needed - Reason: Recheck today's complaints, Re-evaluation by your physician Discharge Instructions: - Discharge Summary Sheet rn - Head Injury, Adult rn Forms: - Medication Reconciliation Form rn - Thank You Letter rn - Antibiotic nicu rn - Prescription Opioid Use rn Signatures: Dispatcher [employer] Brnuo Smith MD MD rn Baxter, Heather, RN RN
--- NOTE | 2022-05-22 23:36 | ER ---
Nurse's Notes [facility] Name: Carla Pantoja Age: 72 yrs Sex: Female : 1950 Arrival Date: 05/22/2022 Time: 22:24 Bed Waiting Private MD: Diagnosis: Unspecified injury of head, initial encounter Presentation: 05/22 22:32 Chief complaint: Electric weed eater fell on head, c/o headache 5/10. Negative LOC. hb Denies N/V/dizziness. 22:33 Coronavirus screen: At this time, the client does not indicate any symptoms associated hb with coronavirus-19. 22:33 Method Of Arrival: Ambulatory hb 22:34 Ebola Screen: No symptoms or risks identified at this time. Initial Sepsis Screen: Does hb the patient meet any 2 criteria? No. Patient's initial sepsis screen is negative. Does the patient have a suspected source of infection? No. Patient's initial sepsis screen is negative. Risk Assessment: Do you want to hurt yourself or someone else? Patient reports no desire to harm self or others. Onset of symptoms was May 22, 2022. 22:34 Acuity: LAUREEN 4 hb Triage Assessment: 22:36 General: Appears in no apparent distress. Behavior is calm, cooperative. Pain: Pain hb currently is 5 out of 10 on a pain scale. Neuro: Level of Consciousness is awake, alert, obeys commands, Oriented to person, place, time, situation. Cardiovascular: Patient's skin is warm and dry. Respiratory: Respiratory effort is even, unlabored, Respiratory pattern is regular, symmetrical. Historical: - Allergies: 22:36 Morphine; hb - Immunization history:: Adult Immunizations up to date. - Social history:: Smoking status: Patient denies any tobacco usage or history of. - Family history:: not pertinent. - Hospitalizations: : No recent hospitalization is reported. Screenin:45 Abuse screen: Denies threats or abuse. Denies injuries from another. Nutritional hb screening: No deficits noted. Tuberculosis screening: No symptoms or risk factors identified. Fall Risk None identified. Assessment: 22:38 General: Appears in no apparent distress. Behavior is calm, cooperative. Neuro: Level hb of Consciousness is awake, alert, obeys commands, Oriented to person, place, time, situation. Cardiovascular: Patient's skin is warm and dry. Respiratory: Respiratory effort is even, unlabored, Respiratory pattern is regular, symmetrical. 23:43 Reassessment: Patient appears in no apparent distress at this time. No changes from hb previously documented assessment. Patient and/or family updated on plan of care and expected duration. Pain level reassessed. Vital Signs: 22:33 BP 174 / 77; Pulse 91; Resp 16; Temp 97.4; Pulse Ox 100% on R/A; Weight 110.68 kg; hb Height 5 ft. 5 in. (165.10 cm); Pain 5/10; 22:33 Body Mass Index 40.60 (110.68 kg, 165.10 cm) hb Everett Coma Score: 23:33 Eye Response: spontaneous(4). Verbal Response: oriented(5). Motor Response: obeys rn commands(6). Total: 15. 23:33 Eye Response: spontaneous(4). Verbal Response: oriented(5). Motor Response: obeys rn commands(6). Total: 15. ED Course: 22:24 Patient arrived in ED. bp1 22:31 Bruno Jessica MD is Attending Physician. rn 22:36 Triage completed. hb 22:36 Arm band placed on. hb 22:45 Patient has correct armband on for positive identification. hb 22:56 CT Head Brain wo Cont In Process Unspecified. EDMS 23:43 Gracy Magaña, RN is Primary Nurse. hb 23:44 No provider procedures requiring assistance completed. Patient did not have IV access hb during this emergency room visit. Administered Medications: No medications were administered Medication: 23:43 VIS not applicable for this client. hb Outcome: 23:35 Discharge ordered by . rn 23:44 Discharged to home ambulatory, with family. hb 23:44 Condition: stable 23:44 Discharge instructions given to patient, Instructed on discharge instructions, follow up and referral plans. Demonstrated understanding of instructions, follow-up care. 23:44 Patient left the ED. hb Signatures: Dispatcher [employer] EDMS Bruno Jessica MD MD rn Baxter, Heather, RN RN hb Mary Beth Best bp1 Corrections: (The following items were deleted from the chart) 22:36 22:33 Chief complaint: Electric weed eater fell on head, c/o headache 6/10. Negative hb LOC. Denies N/V/dizziness. hb 22:36 22:33 BP 174 / 77; Pulse 91bpm; Resp 16bpm; Pulse Ox 100% RA; Temp 97.4F; hb hb
[2022-05-23 00:28] VITALS: BP 174/77; TEMP 97.4; O2SAT 100
--- NOTE | 2022-05-23 13:08 | RAD REPORT ---
EXAM DESCRIPTION: Head Brain Wo Cont CLINICAL HISTORY: 72 years Female, head injury, lawn equipment fell on head TECHNIQUE: Helical CT axial images are obtained from the base of skull through the vertex without IV contrast. Multiplanar reconstruction. This exam was performed according to our departmental dose-opt imization program, which includes automated exposure control, adjustment of the mA and/or kV accordin g to patient size and/or use of iterative reconstruction technique. COMPARISON: None. FINDINGS: BRAIN: No infarcts. No parenchymal hemorrhage, intra-axial mass, mass effect, or midline s hift. No abnormal extra-axial fluid collections. VENTRICLES: Ventricles are normal in size and configuration. No hydrocephalus. CALVARIUM: Bone windows show no skull fracture or calvarial lesions. PARANASAL SINUSES AND MASTOIDS: Visualized paranasal sinuses are clear. Mastoid air cells are clear . IMPRESSION: 1. No acute intracranial disease. Electronically signed by: Oli Amado MD 05/22/2022 11:25 PM CDT Due to temporary technical issues with the PACS/Fluency reporting system, reports are being signed by the in house radiologists without review as a courtesy to insure prompt reporting. The interpreting radiologist is fully responsible for the content of the report.
--- OUTSIDE RECORDS SUMMARY | 2022-05-24 14:56 | XMS REPORT | Continuity of Care Document ---
:1950 Author Organization [facility] t Address [address] [place] [address] Dr. Henri[address] [place] [address] Care Team Providers Name Role Phone Provider Primary Care Physician Unavailable Donaldo Attending Clinician Unavailable ANDRÉS Attending Clinician Unavailable COY BOWEN Attending Clinician Unavailable Therapy, Covid Infusion Attending Clinician Unavailable Andrés ANAYA, A Attending Clinician Aman BOWEN Attending Clinician Unavailable Doctor Unassigned, Name Attending Clinician Unavailable Devin Admitting Clinician Unavailable COY BOWEN Admitting Clinician Unavailable Payers Payer Name Policy Type Policy Number Effective Date Expiration Date S claudia MEDICARE PART A [id number] 2014 \T\ B 00:00:00 [employer] INDEMNITY [id number] 2017 00:00:00 MEDICARE PART A [id number] \T\ [id number] - MEDICARE INDEMNITY/TRADITIO [id number] NAL CHOICE - [employer] MEDICARE A B [id number] 2014 00:00:00 [employer] INDEMNITY [id number] 2017 NON CONTR 00:00:00 Problems Condition Condition Condition Status Onset Resolution Last Treating Co mments Source Name Details Category Date Date Treatment Clinician Date Abdominal Abdominal Disease Active Uni vers pain pain 4-23 ity of 00:00: [address] Gastrointe Gastrointe Disease Active M ethodi stinal stinal 6-08 st hemorrhage hemorrhage 00:00: Ho spita 00 l Melena Melena Disease Active Overview: Method i 04-[address] 00:00: g of this Hospita 00 note l might be different from the original. Added automatic ally from request for surgery [id number] Allergies, Adverse Reactions, Alerts Allergy Allergy Status Severity Reaction(s) Onset Inactive Treating Comm ents Source Name Type Date Date Clinician CEPHALEX Allergy Active [facility]a [facility] 00 [place] Cephalex Drug Active Nausea Only [facility]era 12[facility]04 [facility] nce 00:[facility]: Medical 00 [place] Orphenad Propensi Active [facility] rine Hcl ty to 11-24 [place] adverse 00:00: of reaction 00 Medicin s to e drug Opioid Propensi Active [facility] Analgesi ty to 11-24 [place] cs adverse 00:00: of reaction 00 Medicin s to e drug Cephalex Propensi Active Nausea 2018- Univer s in ty to and/or 2-16 ity of adverse Vomiting 00:00: [place] reaction 00 Medical s Branch Morphine Propensi Active Itching 2018- Unive rs ty to 16 ity of adverse 00:00: [place] reaction 00 Medical Branch CEPHALEX DRUG Active N/V 2018- Univers IN INGREDI -16 ity of 00:00: [place] 00 Medical Branch MORPHINE DRUG Active ITCHING 2018- Univers INGREDI 2-16 ity of 00:00: [place] 00 [facility] Branch Cephalex Propensi Active GI 2019- Method i in ty to Intolerance 04-11 st adverse 00:00: Hospita reaction 00 l s to drug Morphine Propensi Active Rash 2018- Method i ty to 04-11 st adverse 00:00: Hospita reaction 00 l s to drug MORPHINE Allergy Active Low Itching 2018- [facility] Medical 00 [place] Morphine Drug Active Itching, 2019- itching [facility] Allergy Rash 04-11 [facility] 00:[facility]: Medical 00 [place] Family History Family Member Diagnosis Comments Start Date Stop Date Source Natural mother Pulmonary embolism [facility] Social History Social Habit Start Date Stop Date Quantity Comments Source Exposure to Not sure [facility] SARS-CoV-2 (event) Medica l Center History SDOH [facility] Alcohol Std Drinks Hospit al History SDOH [facility] Binge Hospital History SDOH [facility] Alcohol Comment Hospital Tobacco Comment 2021-12-04 2021-12-[address] [facility] 00:00:00 00:00:00 Medical Center Alcohol intake 2019-06-19 2019-06-19 Lifetime [facility] 00:00:00 00:00:00 non-drinker Hospital (finding) History SDOH 2019-06-18 2019-06-18 1 [facility] Alcohol Frequency 00:00:00 00:00:00 Hospita l Cigarettes smoked 2019-04-11 2019-04-[address] current (pack per 00:00:00 00:00:00 Hospita l day) - Reported Cigarette 2019-04-11 2019-04-11 [facility] pack-years 00:00:00 00:00:00 Hospital Tobacco use and 2019-04-11 2019-04-11 Smokeless tobacco [facility] exposure 00:00:00 00:00:00 non-user Hospital History of tobacco 2013-11-04 Cigarette Smoker [facility] use 00:00:00 of Medicine Sex Ass[birth year] [facility] 00:00:00 00:00:00 Hospital Smoking Status Start Date Stop Date Source Former smoker 2021-12-04 00:00:00 2021-12-04 00:00:[address] [facility] Medications Ordered Filled Start Stop Current Ordering Indication Dosage Frequency Signature Comments Components Source Medication Medication Date Date Medication? Clinician (SIG) Name Name ferrous Yes Take by [facility] sulfate 1- [facility]. [facility] (IRON ORAL) 08:50: Medica l 19 Center levothyroxi Yes 175ug Take [address] ne 1-31 mcg by [facility] (SYNTHROID, 08:48: mouth Medic al LEVOTHROID) 19 Every Center 175 MCG morning on tablet an empty stomach. metoprolol Yes 25mg QD Take [address] succinate 1-31 by mouth [facility] (TOPROL-XL) 08:48: daily. Medi sameer 25 MG 24 hr 19 Center tablet pantoprazol Yes 40mg QD Take [address] e 1-31 by mouth [facility] (PROTONIX) 08:48: daily. Medic al 40 MG 19 Center tablet rosuvastati Yes 40mg QD Take [address] n (CRESTOR) 1-31 by mouth Luke s 40 MG 08:48: daily. Medical tablet Center CHOLECALCIF Yes Take by [facility] MATTIE, 12-04 mouth. [facility] VITAMIN D3, 08:48: Medica l ORAL [address] [place] [address] aspirin 81 Yes 81mg QD Take [address] MG EC 12-04 by mouth [facility] tablet 08:48: daily. [address] levothyroxi Yes 1 tablet Ba paddy ne 11-24 in the [place] (SYNTHROID) 11:46: morning on of 175 MCG 17 an empty Medicin tablet stomach e metoprolol Yes 1{tbl} [address] [facility] (TOPROL-XL) 11-24 [place] 25 MG XL 11:46: of tablet 17 Medicin e pantoprazol Yes 1{tbl} [address] [facility] e 11-24 [place] (PROTONIX) 11:46: of 40 MG 17 Medicin tablet e rosuvastati Yes 1{tbl} [address] [facility] n (CRESTOR) 11-24 [place] 40 MG 11:46: of tablet 17 Medicin e Cholecalcif Yes See Admin B aylor mattie 11-24 [facility] (VITAMIN 11:46: ns. of D3) [id number] 17 Medicin UNIT/GM e LIQD aspirin EC Yes 1{tbl} [address] [facility] 81 MG 11-24 [place] tablet 11:46: of 17 Medicin e casirivimab 2020- No [id number] 1200mg 1,200 mg, Univers -imdevimab 08-03 Subcutaneo it y of (REGEN-COV 21:00: 19:55 us, ONCE, [place] (EUA)) 00 :00 1 dose, On Medical injection [place] Branch 1,200 mg 08/03/21 at 1600, Routine ezetimibe Yes 10mg Take 10 mg Un red 10 mg 4-25 by mouth ity of tablet 18:30: daily. [place] [address] Medical Branch metoprolol Yes 25mg Take 25 mg U nivers tartrate 25 4-25 by mouth 2 it y of mg tablet 18:30: (two) [place] [address] times Medical daily. Branch levothyroxi Yes 175ug Take 175 U nivers ne 175 mcg 4-25 mcg by ity of tablet 18:30: mouth [place] [address] every Medical morning. Branch rosuvastati Yes 40mg Take 40 mg Univers n 40 mg 4-25 by mouth ity of tablet 18:30: at [place] [address] bedtime. Medical Branch iron,carb/v Yes 65mg Take 65 mg Univers it C/vit 4-25 by mouth. ity of B12/folic 18:30: [place] (IRON 100 27 Medical PLUS ORAL) Branch glucosamine Yes Take by Un red /condroitin 4-25 mouth. ity of /[id number] 18:30: [place] (COSAMIN 27 Medical ASU ORAL) Branch ascorbic Yes 500mg Take 500 Univ ers acid, 4-25 mg by ity of vitamin C, 18:30: mouth. [place] (VITAMIN C) 27 Medical 500 mg Branch tablet ezetimibe Yes 10mg Take 10 mg Un red 10 mg 4-25 by mouth ity of tablet 18:30: daily. [place] [address] Medical Branch metoprolol Yes 25mg Take 25 mg U nivers tartrate 25 4-25 by mouth 2 it y of mg tablet 18:30: (two) [place] [address] times Medical daily. Branch levothyroxi Yes 175ug Take 175 U nivers ne 175 mcg 4-25 mcg by ity of tablet 18:30: mouth [place] [address] every Medical morning. Branch rosuvastati Yes 40mg Take 40 mg Univers n 40 mg 4-25 by mouth ity of tablet 18:30: at [place] [address] bedtime. Medical Branch iron,carb/v Yes 65mg Take 65 mg Univers it C/vit 4-25 by mouth. ity of B12/folic 18:30: [place] (IRON 100 27 Medical PLUS ORAL) Branch glucosamine Yes Take by Un red /condroitin 4-25 mouth. ity of /[id number] 18:30: [place] (COSAMIN 27 Medical ASU ORAL) Branch ascorbic Yes 500mg Take 500 Univ ers acid, 4-25 mg by ity of vitamin C, 18:30: mouth. [place] (VITAMIN C) 27 Medical 500 mg Branch tablet rosuvastati Yes 40mg QD Take 40 mg Methodi n (CRESTOR) 8-[address] 40 MG 12:28: daily. Hospita tablet 42 l ezetimibe Yes 10mg QD Take 10 mg Me thodi (ZETIA) 10 8-[address] mg tablet 12:28: daily. Hospit a 42 l metoprolol Yes 25mg QD Take 25 mg M ethodi succinate 8-[address] XL 12:28: daily. Hospita (TOPROL-XL) 42 l 25 mg 24 hr tablet cholecalcif Yes 2000U QD Take 2,000 Methodi mattie, 8-[address] vitamin D3, 12:28: mouth Hospi ta (VITAMIN 42 daily. l D3) 2,000 unit capsule capsule L.acidophil Yes Take by Met hodi us-Bifido.l 8-[address] ongum 12:28: Hospita (PROBIOTIC 42 l PEARLS) 15 mg (1 billion cell) capsule,del ayed release(DR/ EC) sodium,pota Yes [id number] Dispense Methodi ssium,mag 06-09 one kit, st sulfates 00:00: pt to use Hosp my 17.5-3.13-1 00 as l .6 gram directed. recon soln Vital Signs Vital Name Observation Time Observation Value Comments Source WEIGHT 2021-12-06 11:45:00 111.676 kg HEIGHT 2021-12-06 11:45:00 165.1 cm HEIGHT 2021-12-04 08:53:00 165.1 cm WEIGHT 2021-12-04 08:53:00 113.399 kg Systolic blood 2021-11-24 17:41:00 140 mm[Hg] [facility] pressure Medicine Diastolic blood 2021-11-24 17:41:00 80 mm[Hg] [facility] pressure Medicine Heart rate 2021-11-24 17:41:00 80 /min [facility] Body temperature 2021-11-24 17:41:00 36.56 Stephanie [facility] Body height 2021-11-24 17:41:00 165.1 cm [facility] Body weight 2021-11-24 17:41:00 108.863 kg [facility] BMI 2021-11-24 17:41:00 39.94 kg/m2 [facility] Systolic blood 2021-08-03 20:40:00 137 mm[Hg] Univer sity of pressure [facility] Diastolic blood 2021-08-03 20:40:00 58 mm[Hg] Unive rsity of [facility] Heart rate 2021-08-03 20:40:00 75 /min [facility] Body temperature 2021-08-03 20:40:00 37.56 Stephanie [facility] 2021-08-03 20:40:00 22 /min [facility] Oxygen saturation in 2021-08-03 20:40:00 93 /min [facility] Arterial blood by [facility] Pulse oximetry Branch Body height 2021-08-03 19:53:00 165.1 cm [facility] Body weight 2021-08-03 19:53:00 72.122 kg [facility] BMI 2021-08-03 19:53:00 26.46 kg/m2 [facility] Body height 2021-12-04 08:53:00 165.1 cm [facility] Body weight 2021-12-04 08:53:00 113.399 kg [facility] BMI 2021-12-04 08:53:00 41.60 kg/m2 [facility] Procedures Procedure Date / Time Performed Performing Clinician [facility] william ENDOSCOPY,SMALL 2021-12-06 13:00:00 Eduard Bowen [facility] BOWEL/ INTESTINE Center ENTEROSCOPY,BIOPSY 2021-12-06 13:00:00 Eduard Bowen [facility] CONSENT/REFUSAL FOR 2021-08-03 05:01:00 Doctor Unassigned, No Un [facility] DIAGNOSIS AND Name Medical Branch TREATMENT Plan of Care Planned Activity Planned Date Details Comments Source Future Scheduled 2021-12-05 COVID-[address] Test 15:00:33 (1) [code = Hospital COVID-19 VACCINE (1)] Future Scheduled 2021-12-05 Hepatitis C [facility] Test 15:00:33 screening Hospital (procedure) [code = 882431872] Future Scheduled 2021-12-05 BREAST CANCER [facility] Test 15:00:33 SCREENING [code = Hospital BREAST CANCER SCREENING] Future Scheduled 2021-12-05 COLONOSCOPY [facility] Test 15:00:33 SCREENING [code = Hospital COLONOSCOPY SCREENING] Future Scheduled 2021-12-05 SHINGLES VACCINES Method ist Test 15:00:33 (#1) [code = Hospital SHINGLES VACCINES (#1)] Future Scheduled 2021-12-05 65+ PNEUMOCOCCAL Methodi [facility] Test 15:00:33 VACCINE (1 of 1 - Hospital PPSV23) [code = 65+ PNEUMOCOCCAL VACCINE (1 of 1 - PPSV23)] Future Scheduled 2021-12-05 INFLUENZA VACCINE Method ist Test 15:00:33 [code = INFLUENZA Hospital VACCINE] Future Scheduled 2021-11-26 Screening for [facility] Test 17:53:24 malignant neoplasm of Medici ne of colon (procedure) [code = 403418636] Future Scheduled 2021-11-26 Screening for [facility] Test 17:53:24 malignant neoplasm of Medici ne of breast (procedure) [code = 191030985] Future Scheduled 2021-11-26 COVID-[address] [facility] Test 17:53:24 (1) [code = of Medicine COVID-19 Vaccine (1)] Future Scheduled 2021-11-[address] [facility] Test 17:53:24 (ADULT) [code = of Medicine TETANUS SHOT (ADULT)] Future Scheduled 2021-11-26 BMI FOLLOW UP PLAN [facility] r College Test 17:53:24 [code = BMI FOLLOW of Medici ne UP PLAN] Future Scheduled 2021-11-[address] [facility] Test 17:53:24 screening of Medicine (procedure) [code = 644145361] Future Scheduled 2021-11-26 ZOSTER VACCINE (1 [facility] Test 17:53:24 of 2) [code = of Medicine ZOSTER VACCINE (1 of 2)] Future Scheduled 2021-11-[address] [facility] Test 17:53:24 (Initial) [code = of Medicin e MEDICARE AWV (Initial)] Future Scheduled 2021-11-26 FALL SCREEN [code = [employer] Test 17:53:24 FALL SCREEN] of Medicine Future Scheduled 2021-11-[address] [facility] Test 17:53:24 osteoporosis of Medicine (procedure) [code = 102433644] Future Scheduled 2021-11-26 Pneumococcal 65+ (1 [employer] Test 17:53:24 of 1 - PPSV23) of Medicine [code = Pneumococcal 65+ (1 of 1 - PPSV23)] Future Scheduled 2021-11-26 FLU VACCINE > 6 [facility] Test 17:53:24 MONTHS [code = FLU of Medici ne VACCINE > 6 MONTHS] Future Scheduled 2021-11-[address] [facility] Test 12:30:06 ENTEROSCOPY,ANTEGRA starting of Medic ine DE W ILEUM [code = 11/24/2021 until 6[address]] 05/24/2022 Future Scheduled 2021-11-[address] [facility] Test 00:00:00 SCREENING (12+) Medical Cent er [code = DEPRESSION SCREENING (12+)] Future Scheduled 2021-11-[address] [facility] Test 00:00:00 SCREENING [code = Medical Ce nter FALLS RISK SCREENING] Future Scheduled 2021-07-[address] [facility] Test 00:00:00 (#1) [code = Medical Center INFLUENZA VACCINE (#1)] Future Scheduled [address] [facility] Test 00:00:00 WELLNESS (YEAR 2 or Medical Center FIRST YEAR if no IPPE) [code = MEDICARE ANNUAL WELLNESS (YEAR 2 or FIRST YEAR if no IPPE)] Future Scheduled 2014 P[address]UMOCOCCAL [address] Test 00:00:00 YRS (1 of 1 - Medical Center [id number] PCV13) [code = PNEUMOCOCCAL 65+ YRS (1 of 1 - [id number] PCV13)] Future Scheduled [address] [facility] Test 00:00:00 (1 of 2) [code = Medical Deepak ter SHINGLES VACCINES (1 of 2)] Future Scheduled 1968 DTAP/TDAP/TD [facility] Test 00:00:00 VACCINES (1 - Tdap) Medical Center [code = DTAP/TDAP/TD VACCINES (1 - Tdap)] Future Scheduled [address] [facility] Test 00:00:00 SCREENING [code = Medical nter HEPATITIS C SCREENING] Future Scheduled 1961 COVID-[address] [facility] Test 00:00:00 (1) [code = Medical Center COVID-19 VACCINE (1)] Future Scheduled [address] [facility] Test 00:00:00 malignant neoplasm Medical C enter of breast (procedure) [code = 601850321] Future Scheduled [address] [facility] Test 00:00:00 malignant neoplasm Medical C enter of colon (procedure) [code = 190922283] Future Scheduled 1950 DXA SCAN [code = [facility] Test 00:00:00 DXA SCAN] Medical Center Encounters Start End Encounter Admission Attending Care Care Encounter Source Date/Time Date/Time Type Type Clinicians Facility Department ID 2021-12-01 Outpatient [facility] [id number] Common 09:01:00 [place] [id number] [facility] 2021-11-29 Outpatient Donaldo, [facility] [id number] Common 12:56:04 [place] [id number] [facility] 2021-09-03 Emergency [facility] [id number] [facility] 2021-12-06 2021-12-07 Outpatient LARISA BOWEN [facility] [id number] [facility] 16:51:29 16:53:11 [place]ARD [place] of Medicin e 2021-12-06 2021-12-06 Outpatient HEIDI BOWEN [facility] Surgery [id number] SLE 11:20:00 15:40:00 EDUARD 2021-12-04 2021-12-04 Outpatient [facility] [id number] SLE 09:07:49 23:59:00 2021-12-04 2021-12-04 [facility] [id number] 08:35:00 23:59:00 [facility] 2021-12-04 2021-12-04 Travel [facility] [id number] [facility] 00:[facility] 00:[facility]00 [facility] 2021-11-24 2021-11-24 Office LARISA BOWEN [id number] [facility] 11:36:04 14:46:37 Visit EDUARD AMBULATOR [id number] College Y [id number] of [id number] [facility] chavo 325 e 2021-08-03 2021-08-03 Nurse Therapy, Adc Covid Infusion [facility] [id number] Univers 14:04:56 15:04:56 Visit Samuel Bowen 350.1.13.10 it[place] 4[place]2.[place] [id number] [place] [id number] Branch 2021-08-03 2021-08-03 Outpatient R [facility] [id number] Univers 14:00:00 14:00:00 [id number] itgrace [facility] 2021-08-03 2021-08-03 [facility] [id number] Univers 14:00:00 14:00:00 SAMUEL itgrace [facility] 2021-08-03 2021-08-03 Orders Doctor ISIDORO [id number] Univers 00:00:00 00:00:00 Only Unassigned, YOLANDA 350.1.13.10 ity of [place] [facility] 4.2.7.2.686 Wolfgang as [id number] [facility] 009 Branch Results This patient has no known results.
== END 2022-05-22 23:44 | disposition home or self-care (01) ==
LOC: ER 22:21
DX: S09.90XA Unspecified injury of head, initial encounter (principal); Z88.5 Allergy status to narcotic agent
CPT/HCPCS: 70450; 99283

== ENCOUNTER 2023-06-05 19:40 | Emergency (ER) | payer OTHER ==
--- OUTSIDE RECORDS SUMMARY | 2023-06-05 19:44 | XMS REPORT | Continuity of Care Document ---
:1950 Author Organization [facility] t Address [address] [place] [address] Care Team Providers Name Role Phone Provider, Unknown Primary Care Physician Unavailable Tyler Fulton Attending Clinician Unavailable ISAIAS BOWEN Attending Clinician Unavailable Therapy, Adc Covid Infusion Attending Clinician Unavailable Samuel Bowen MD Attending Clinician SAMUEL BOWEN Attending Clinician Unavailable Doctor Unassigned, [place] Attending Clinician Unavailable Raul Beltran Admitting Clinician Unavailable ISAIAS BOWEN Admitting Clinician Unavailable Payers Payer Name Policy Type Policy Number Effective Date Expiration Date S claudia MEDICARE PART A [id number] 2014 \T\ B 00:00:00 [employer] INDEMNITY [id number] 2017 00:00:00 MEDICARE A B [id number] 2014 00:00:00 [employer] INDEMNITY [id number] 2017 NON CONTR 00:00:00 Problems Condition Condition Condition Status Onset Resolution Last Treating Co mments Source Name Details Category Date Date Treatment Clinician Date Abdominal Abdominal Disease Active Uni vers pain pain 4-23 ity of 00:00: [place] [id number] Medical Branch Gastrointe Gastrointe Disease Active M ethodi stinal stinal 08 st hemorrhage hemorrhage 00:00: Ho spita 00 l Melena Melena Disease Active Overview: Method i 04-[address] 00:00: g of this Hospita 00 note l might be different from the original. Added automatic ally from request for surgery [id number] Allergies, Adverse Reactions, Alerts Allergy Allergy Status Severity Reaction(s) Onset Inactive Treating Comm ents Source Name Type Date Date Clinician Cephalex Drug Active Nausea Only [facility] Center CEPHALEX Allergy Active Nausea [facility] Cephalex Propensi Active Nausea 2018- Univer s in ty to and/or 2-16 ity of adverse Vomiting 00:00: [place] reaction 00 Medical s Branch Morphine Propensi Active Itching 2018- Unive rs ty to -16 ity of adverse 00:00: [place] reaction 00 [facility] s Branch CEPHALEX DRUG Active N/V 2018- Univers IN INGREDI -16 ity of 00:00: [place] 00 [facility] Branch MORPHINE DRUG Active ITCHING 2018- Univers INGREDI 16 ity of 00:00: [place] 00 [facility] Branch Cephalex Propensi Active GI 2019-0 Method i in ty to Intolerance 04-11 st adverse 00:00: Hospita reaction 00 l s to drug Morphine Propensi Active Rash 2019- Method i ty to [address] adverse 00:00: Hospita reaction 00 l s to drug Morphine Drug Active Itching, 2019- itching [facility] Allergy [facility] 04[facility]11 [facility] 00[facility] MORPHINE Allergy Active Low Itching 2018- [facility] Family History Family Member Diagnosis Comments Start Date Stop Date Source Natural mother Pulmonary embolism [facility] Social History Social Habit Start Date Stop Date Quantity Comments Source Exposure to Not sure [facility] SARS-CoV-2 (event) Medica l Center Gender identity [facility] Sexual orientation [facility] History SDOH [facility] Alcohol Binge Medical [facility] History of tobacco Current smoker [facility] use [facility] History SDOH [facility] Alcohol Std Drinks Medica l Center History SDOH [facility] Alcohol Comment Hospital Alcohol intake 2021-12-06 2021-12-06 Ex-drinker [facility] 00:[facility]00 00:00:00 (finding) [facility] Tobacco Comment 2021-12-04 2021-12-[address] [facility] 00:00:00 00:00:00 [facility] Tobacco use and 2021-12-04 2021-12-[address] [facility] exposure 00:00:00 00:00:00 tobacco non-user Medical Center History SDOH 2021-12-04 2021-12-[address] [facility] Alcohol Frequency 00:00:00 00:00:00 [facility] History of Social 2019-06-24 2019-06-[address] function 00:00:00 00:00:00 Hospital Cigarettes smoked 2019-04-11 2019-04-[address] current (pack per 00:00:00 00:00:00 Hospita l day) - Reported Cigarette 2019-04-11 2019-04-11 [facility] pack-years 00:00:00 00:00:00 Hospital Sex Assigned At 1950 [address] [facility] [address] [facility] isabel 00:00:00 00:00:00 [facility] Smoking Status Start Date Stop Date Source Ex-smoker 2021-12-04 00:00:00 2021-12-04 00:00:00 [facility] Medications Ordered Filled Start Stop Current Ordering Indication Dosage Frequency Signature Comments Components Source Medication Medication Date Date Medication? Clinician (SIG) Name Name levothyroxi Yes 175ug Take [address] ne 2-02 mcg by [facility] (SYNTHROID, 15:43: mouth Medic al LEVOTHROID) 23 Every Center 175 MCG morning on tablet an empty stomach. metoprolol Yes 25mg QD Take [address] succinate 2-02 by mouth [facility]ukes (TOPROL-XL) 15:43: daily. Medi sameer 25 MG 24 hr 23 Center tablet pantoprazol Yes 40mg QD Take [address] e 2-02 by mouth [facility]ukes (PROTONIX) 15:43: daily. Medic al 40 MG 23 Center tablet rosuvastati Yes 40mg QD Take [address] n (CRESTOR) 2-02 by mouth Luke s 40 MG 15:43: daily. Medical tablet 23 Center CHOLECALCIF Yes Take by [facility] MATTIE, 2-02 mouth. [facility]ukes VITAMIN D3, 15:43: Medica l ORAL 23 Center aspirin 81 Yes 81mg QD Take [address] MG EC 2-02 by mouth [facility]ukes tablet 15:43: daily. [facility] 23 Center ferrous Yes Take by [facility] sulfate 2-02 mouth. [facility]ukes (IRON ORAL) 15:43: Medica l 23 [facility] ferrous Yes Take by [facility] sulfate 1- mouth. [facility]ukes (IRON ORAL) 08:50: Medica l 19 [facility] pantoprazol Yes 40mg QD Take [address] e 1-31 by mouth [facility]ukes (PROTONIX) 08:48: daily. Medic al 40 MG 19 Center tablet rosuvastati Yes 40mg QD Take [address] n (CRESTOR) - by mouth Luke s 40 MG 08:48: daily. Medical [facility] 19 [facility] CHOLECALCIF Yes Take by [facility] MATTIE, 1- mouth. [facility]ukes VITAMIN D3, 08:48: Medica l ORAL 19 Center aspirin 81 Yes 81mg QD Take [address] MG EC 1- by mouth Lukes tablet 08:48: daily. [facility] 19 [facility] levothyroxi Yes 175ug Take [address] ne 1-31 mcg by [facility]ukes (SYNTHROID, 08:48: mouth Medic al LEVOTHROID) 19 Every Center 175 MCG morning on tablet an empty stomach. metoprolol Yes 25mg QD Take [address] succinate 1-31 by mouth [facility]ukes (TOPROL-XL) 08:48: daily. Medi sameer 25 MG 24 hr 19 [facility] tablet casirivimab 2020- No [id number] 1200mg 1,200 mg, Univers -imdevimab 08-03 Subcutaneo it y of (REGEN-COV 21:00: 19:55 us, ONCE, [place] (EUA)) 00 :00 1 dose, On Medical injection [facility] Branch 1,200 mg 08/03/21 at 1600, Routine ezetimibe Yes 10mg Take 10 mg Un red 10 mg 4-25 by mouth ity of tablet 18:30: daily. [address] metoprolol Yes 25mg Take 25 mg U nivers tartrate 25 4-25 by mouth 2 it y of mg tablet 18:30: (two) [place] [address] times Medical daily. Branch levothyroxi Yes 175ug Take 175 U nivers ne 175 mcg 4-25 mcg by ity of tablet 18:30: mouth [place] [address] every Medical morning. Branch rosuvastati Yes 40mg Take 40 mg Univers n 40 mg 4-25 by mouth ity of tablet 18:30: at [place] [address] bedtime. Medical Branch iron,carb/v Yes 65mg Take 65 mg Univers it C/vit 4-25 by mouth. ity of B12/folic 18:30: [place] (IRON 100 27 Medical PLUS ORAL) Branch glucosamine Yes Take by Uni vers /condroitin 4-25 mouth. ity of /[id number] 18:30: [place] (COSAMIN 27 Medical ASU ORAL) Branch ascorbic Yes 500mg Take 500 Univ ers acid, 4-25 mg by ity of vitamin C, 18:30: mouth. [place] (VITAMIN C) Medical 500 mg Branch tablet ezetimibe Yes 10mg Take 10 mg Un red 10 mg 4-25 by mouth ity of tablet 18:30: daily. [place] [address] Medical Branch metoprolol Yes 25mg Take 25 mg U nivers tartrate 25 4-25 by mouth 2 it y of mg tablet 18:30: (two) [place] [address] times Medical daily. Branch levothyroxi Yes 175ug Take 175 U nivers ne 175 mcg 4-25 mcg by ity of tablet 18:30: mouth [place] [address] every Medical morning. Branch rosuvastati Yes 40mg Take 40 mg Univers n 40 mg 4-25 by mouth ity of tablet 18:30: at [place] [address] bedtime. Medical Branch iron,carb/v Yes 65mg Take 65 mg Univers it C/vit 4-25 by mouth. ity of B12/folic 18:30: [place] (IRON 100 27 Medical PLUS ORAL) Branch glucosamine 0 Yes Take by Uni vers /condroitin 4-25 mouth. ity of /[id number] 18:30: [place] (COSAMIN 27 Medical ASU ORAL) Branch ascorbic Yes 500mg Take 500 Univ ers acid, 4-25 mg by ity of vitamin C, 18:30: mouth. [place] (VITAMIN C) 27 Medical 500 mg Branch tablet cholecalcif 2019-0 Yes 2000U QD Take 2,000 Methodi mattie, 8-[address] vitamin D3, 12:28: mouth Hospi ta (VITAMIN 42 daily. l D3) 2,000 unit capsule capsule L.acidophil 2019-0 Yes Take by Met [facility]-[address] ongum 12:28: Hospita (PROBIOTIC 42 l PEARLS) 15 mg (1 billion cell) capsule,del ayed release(DR/ EC) rosuvastati 2019-0 Yes 40mg QD Take 40 mg Methodi n (CRESTOR) 8-[address] 40 MG 12:28: daily. Hospita tablet 42 l ezetimibe 2019-0 Yes 10mg QD Take 10 mg Me thodi (ZETIA) 10 8-[address] mg tablet 12:28: daily. Hospit a 42 l metoprolol 2019-0 Yes 25mg QD Take 25 mg M ethodi succinate 8-[address] XL 12:28: daily. Hospita (TOPROL-XL) 42 l 25 mg 24 hr tablet cholecalcif 2019-0 Yes 2000U QD Take 2,000 Methodi mattie, 8-15 Units by vitamin D3, 12:28: mouth Hospi ta (VITAMIN 42 daily. l D3) 2,000 unit capsule capsule L.acidophil 2018-0 Yes Take by Met [facility] 8-[address] ongum 12:28: Hospita (PROBIOTIC 42 l PEARLS) 15 mg (1 billion cell) capsule,del ayed release(DR/ EC) rosuvastati 2019-0 Yes 40mg QD Take 40 mg Methodi n (CRESTOR) 8-[address] 40 MG 12:28: daily. Hospita tablet 42 l ezetimibe 2019-0 Yes 10mg QD Take 10 mg Me thodi (ZETIA) 10 8-[address] mg tablet 12:28: daily. Hospit a 42 l metoprolol 2019-0 Yes 25mg QD Take 25 mg M ethodi succinate 8-[address] XL 12:28: daily. Hospita (TOPROL-XL) 42 l 25 mg 24 hr tablet sodium,pota 2019-0 Yes [id number] Dispense Methodi ssium,mag 06-09 one kit, st sulfates 00:00: pt to use Hosp my 17.5-3.13-1 00 as l .6 gram directed. recon randy sodium,pota 2019-0 Yes [id number] Dispense Methodi ssium,mag 8-06 one kit, st sulfates 00:00: pt to use Hosp my 17.5-3.13-1 00 as l .6 gram directed. recon randy Vital Signs Vital Name Observation Time Observation Value Comments Source WEIGHT 2021-12-06 11:45:00 111.676 kg HEIGHT 2021-12-06 11:45:00 165.1 cm HEIGHT 2021-12-04 08:53:00 165.1 cm WEIGHT 2021-12-04 08:53:00 113.399 kg Systolic blood 2021-08-03 20:40:00 137 mm[facility]Hg[facility] 2021-08-03 20:40:00 58 [facility]Hg] [facility] 2021-08-03 20:40:00 75 /min [facility] Body temperature 2021-08-03 20:40:00 37.56 Stephanie [facility] Respiratory rate 2021-08-03 20:40:00 22 /min [facility] Oxygen saturation in 2021-08-03 20:40:00 93 /min [facility] Arterial blood by [facility] Pulse oximetry Branch Body height 2021-08-03 19:53:00 165.1 cm [facility] Body weight 2021-08-03 19:53:00 72.122 kg [facility] BMI 2021-08-03 19:53:00 26.46 kg/m2 [facility] Body height 2021-12-04 08:53:00 165.1 cm [facility] Body weight 2021-12-04 08:53:00 113.399 kg [facility] BMI 2021-12-04 08:53:00 41.60 kg/m2 [facility] Procedures Procedure Date / Time Performed Performing Clinician Willie thomas ENDOSCOPY,SMALL 2021-12-06 13:00:00 Isaias Bowen [facility] BOWEL/ INTESTINE Center ENTEROSCOPY,BIOPSY 2021-12-06 13:00:00 Isaias Bowen [facility] CONSENT/REFUSAL FOR 2021-08-03 05:01:00 Doctor Unassigned, No Un [facility] DIAGNOSIS AND Name Medical Branch TREATMENT Plan of Care Planned Activity Planned Date Details Comments Source Future Scheduled 2023-07-05 Influenza Vaccine (#1) C HI [facility] Test 00:00:00 [code = Influenza Medical Ce nter Vaccine (#1)] Future Scheduled 2023-04-20 [facility] for [facility] Test 23:51:07 malignant neoplasm of colon (procedure) [code = 416623390] Future Scheduled 2023-04-20 [facility] Test 23:51:07 malignant neoplasm of colon (procedure) [code = 895275221] Future Scheduled 2023-04-20 [facility] Test 23:51:07 malignant neoplasm of colon (procedure) [code = 354627647] Future Scheduled 2023-04-20 COVID-19 VACCINE (#1) [facility] Test 23:51:07 [code = COVID-19 VACCINE (#1)] Future Scheduled 2023-04-20 BREAST CANCER [facility] Test 23:51:07 SCREENING [code = BREAST CANCER SCREENING] Future Scheduled 2023-04-20 [facility] Test 23:51:07 malignant neoplasm of colon (procedure) [code = 510475035] Future Scheduled 2023-04-20 [facility] Test 23:51:07 malignant neoplasm of colon (procedure) [code = 567974896] Future Scheduled 2023-04-20 SHINGLES VACCINES ([facility] Test 23:51:07 of 2) [code = SHINGLES VACCINES (1 of 2)] Future Scheduled 2023-04-20 65+ [facility]OCOCCAL [facility] Test 23:51:07 VACCINE (1 - PCV) [code = 65+ PNEUMOCOCCAL VACCINE (1 - PCV)] Future Scheduled 2023-04-20 INFLUENZA VACCINE [facility] Test 23:51:07 [code = INFLUENZA VACCINE] Future Scheduled 2022-12-06 Tobacco Cessation [facility] Test 00:00:00 Counseling and Medical Cente r Screening (12+) [code = Tobacco Cessation Counseling and Screening (12+)] Future Scheduled 2022-11-[address] [facility] Test 00:00:00 (12+) [code = Medical Center DEPRESSION SCREENING (12+)] Future Scheduled 2022-11-04 FALLS RISK SCREENING [facility] Test 00:00:00 [code = FALLS RISK Medical C enter SCREENING] Future Scheduled 2021-12-05 COVID-19 VACCINE (1) Met [facility] Test 15:00:33 [code = COVID-19 VACCINE (1)] Future Scheduled 2021-12-05 Hepatitis C screening [facility] Test 15:00:33 (procedure) [code = 862641768] Future Scheduled 2021-12-05 BREAST CANCER [facility] Test 15:00:33 SCREENING [code = BREAST CANCER SCREENING] Future Scheduled 2021-12-05 COLONOSCOPY SCREENING [facility] Test 15:00:33 [code = COLONOSCOPY SCREENING] Future Scheduled 2021-12-05 SHINGLES VACCINES (#1) M [facility] Test 15:00:33 [code = SHINGLES VACCINES (#1)] Future Scheduled 2021-12-05 65+ PNEUMOCOCCAL [facility] Test 15:00:33 VACCINE (1 of 1 - PPSV23) [code = 65+ PNEUMOCOCCAL VACCINE (1 of 1 - PPSV23)] Future Scheduled 2021-12-05 INFLUENZA VACCINE [facility] Test 15:00:33 [code = INFLUENZA VACCINE] Future Scheduled 2021-11-[address] [facility] Test 00:00:00 (12+) [code = Medical Center DEPRESSION SCREENING (12+)] Future Scheduled 2021-11-04 FALLS RISK SCREENING [facility] Test 00:00:00 [code = FALLS RISK Medical C enter SCREENING] Future Scheduled 2021-07-05 INFLUENZA VACCINE (#1) [facility] Test 00:00:00 [code = INFLUENZA Medical Ce nter VACCINE (#1)] Future Scheduled [address] [facility] Test 00:00:00 WELLNESS (YEAR 2 or Medical Center FIRST YEAR if no IPPE) [code = MEDICARE ANNUAL WELLNESS (YEAR 2 or FIRST YEAR if no IPPE)] Future Scheduled [address] [facility] Test 00:00:00 WELLNESS (YEAR 2 or Medical Center FIRST YEAR if no IPPE) [code = MEDICARE ANNUAL WELLNESS (YEAR 2 or FIRST YEAR if no IPPE)] Future Scheduled 2014 PNEUMOCOCCAL 65+ YRS [facility] Test 00:00:00 (1 of 1 - Medical Center [id number] PCV13) [code = PNEUMOCOCCAL 65+ YRS (1 of 1 - [id number] PCV13)] Future Scheduled 2014 PNEUMOCOCCAL 65+ YRS [facility] Test 00:00:00 (1 - PCV) [code = Medical Ce nter PNEUMOCOCCAL 65+ YRS (1 - PCV)] Future Scheduled 1999 SHINGLES VACCINES ([address] [facility] Test 00:00:00 of 2) [code = SHINGLES Medic al Center VACCINES (1 of 2)] Future Scheduled 1999 SHINGLES VACCINES ([address] [facility] Test 00:00:00 of 2) [code = SHINGLES Medic al Center VACCINES (1 of 2)] Future Scheduled 1968 DTAP/TDAP/TD VACCINES [facility] Test 00:00:00 (1 - Tdap) [code = Medical C enter DTAP/TDAP/TD VACCINES (1 - Tdap)] Future Scheduled 1968 DTAP/TDAP/TD VACCINES [facility] Test 00:00:00 (1 - Tdap) [code = Medical C enter DTAP/TDAP/TD VACCINES (1 - Tdap)] Future Scheduled 1967 HEPATITIS C SCREENING [facility] Test 00:00:00 [code = HEPATITIS C Medical Center SCREENING] Future Scheduled 1967 HEPATITIS C SCREENING [facility] Test 00:00:00 [code = HEPATITIS C Medical Center SCREENING] Future Scheduled 1961 COVID-19 VACCINE (1) [facility] Test 00:00:00 [code = COVID-[address] VACCINE (1)] Future Scheduled 1950 COVID-19 VACCINE (#1) [facility] Test 00:00:00 [code = COVID-[address] VACCINE (#1)] Future Scheduled [address] [facility] [facility] Test 00:00:00 [facility] (procedure) [code = 410632653] Future Scheduled [address] [facility] Test 00:00:00 malignant neoplasm of Medica l Center colon (procedure) [code = 384277268] Future Scheduled 1950 DXA SCAN [code = DXA [facility] Test 00:00:00 SCAN] [facility] Future Scheduled [address] [facility] Test 00:00:00 malignant neoplasm of Medica l Center breast (procedure) [code = 483075832] Future Scheduled [address] Test 00:00:00 (combo) [code = CT Medical C enter Colonography (combo)] Future Scheduled [address] [facility] Test 00:00:00 malignant neoplasm of Medica l Center colon (procedure) [code = 136514148] Future Scheduled [address] [facility] Test 00:00:00 malignant neoplasm of Medica l Center colon (procedure) [code = 932236950] Future Scheduled 1950 DXA SCAN [code = DXA [facility] Test 00:00:00 SCAN] [facility] Future Scheduled [address] [facility] Test 00:00:00 malignant neoplasm of Medica l Center colon (procedure) [code = 736275482] Future Scheduled [address] [facility] Test 00:00:00 malignant neoplasm of Medica l Center colon (procedure) [code = 755381703] Future Scheduled 1950 Sigmoidoscopy [code = [facility] Test 00:00:00 S[facility]oidoscopy] [facility] r Encounters Start End Encounter Admission Attending Care Care Encounter Source Date/Time Date/Time Type Type Clinicians Facility Department ID 2022-06-26 Outpatient Donaldo, [facility] [id number] Common 13:44:[address] [facility] 2021-12-01 Outpatient Donaldo, [facility] [id number] Common 09:01:[address] [facility] 2021-11-29 Outpatient Donaldo, [facility] [id number] Common 12:56:04 Tyler [facility] 2021-09-03 Emergency [facility] [id number] Univers 14:56:58 ity of [facility] 2021-12-06 2021-12-06 Outpatient PUJA BASILIO Surgery [id number] [facility] 11:20:00 15:40:00 ISAIAS 2021-12-04 2021-12-04 Outpatient [facility] [id number] SLE 09:07:49 23:59:00 2021-12-04 2021-12-04 [facility] [id number] [facility] 08:35:00 23:59:00 Encounter [facility] 2021-12-04 2021-12-04 Travel [facility] [id number] [facility] 00:00:00 00:00:00 [facility] 2021-08-03 2021-08-03 Nurse Therapy, Adc Covid Infusion [facility] [id number] Univers 14:04:56 15:04:56 Visit Samuel Bowen [id number] ity [facility] [id number] [place] [id number] [facility] 053 Branch 2021-08-03 2021-08-03 Outpatient Aldo BOWEN [facility] [id number] Univers 14:00:00 14:00:00 SAMUEL ity of [facility] 2021-08-03 2021-08-03 Orders Doctor CHAUDHRY [id number] Univers 00:00:00 00:00:00 Only Unassigned, YOLANDA [id number] ity of [place] [facility] [id number] Wolfgang as [id number] [facility] sameer 009 Branch Results This patient has no known results.
--- NOTE | 2023-06-05 21:07 | RAD REPORT ---
EXAM DESCRIPTION: RAD - Foot Left 3 View - 06/05/2023 9:01 pm CLINICAL HISTORY: great toe injury COMPARISON: No comparisons FINDINGS: Soft tissue swelling is seen affecting the great toe. No acute fracture or dislocation. La rge calcaneal spurs. Two screws are present in the posterior calcaneus.
[2023-06-05] MEDS ORDERED: TDAP (DIPHTH,PERTUSS(ACELL),TET VAC) 0.5 ML VIAL IMVAC ONE (21:14)
--- NOTE | 2023-06-05 21:59 | EDPHYS ---
Physician Documentation [facility] Name: Carla Pantoja Age: 73 yrs Sex: Female : 1950 Arrival Date: 06/05/2023 Time: 19:40 Bed 9 Private MD: VALERIA Physician Real Ferrer HPI: 06/06 01:06 This 73 yrs old Female presents to ER via Ambulatory with complaints of Toe Injury. rt 01:06 Patient presents to the ED with an injury to the left great toenail after dropping a rt leaf blower on it. She denies other injury. She states that it did bleed for a time, however, the bleeding was stopped with direct pressure. Denies other acute complaints at this time or other injuries. Pain is aching nature, nonradiating, mild severity, no other aggravating or elevating factors. Historical: - Allergies: 06/05 20:03 Morphine; iw - PMHx: 20:03 Anemia; Hypothyroidism; reflux; iw - PSHx: 20:03 hysterectomy; iw - Immunization history:: Last tetanus immunization: unknown. - Social history:: Smoking status: Patient denies any tobacco usage or history of. - Family history:: not pertinent. ROS: 06/06 01:06 Constitutional: Negative for fever, chills, and weight loss, Cardiovascular: Negative rt for chest pain, palpitations, and edema, Respiratory: Negative for shortness of breath, cough, wheezing, and pleuritic chest pain, Abdomen/GI: Negative for abdominal pain, nausea, vomiting, diarrhea, and constipation, Neuro: Negative for headache, weakness, numbness, tingling, and seizure, Psych: Negative for depression, anxiety, suicide ideation, homicidal ideation, and hallucinations. MS/extremity: Positive for pain, Negative for deformity. Exam: 01:06 Constitutional: This is a well developed, well nourished patient who is awake, alert, rt and in no acute distress. Head/Face: Normocephalic, atraumatic. Chest/axilla: Normal chest wall appearance and motion. Nontender with no deformity. No lesions are appreciated. Cardiovascular: Regular rate and rhythm with a normal S1 and S2. No gallops, murmurs, or rubs. Normal PMI, no JVD. No pulse deficits. Respiratory: Lungs have equal breath sounds bilaterally, clear to auscultation and percussion. No rales, rhonchi or wheezes noted. No increased work of breathing, no retractions or nasal flaring. Neuro: Awake and alert, GCS 15, oriented to person, place, time, and situation. Cranial nerves II-XII grossly intact. Motor strength 5/5 in all extremities. Sensory grossly intact. Cerebellar exam normal. Normal gait. 01:06 Musculoskeletal/extremity: There is a laceration through the nail of the left great toe. Bleeding is controlled. The nail is essentially split down the middle. The germinal matrix appears to be intact and splinted open with existing toenail. Pulses, motor, sensation are intact. Vital Signs: 06/05 20:05 BP 147 / 62; Pulse 78; Resp 18; Temp 98.4; Pulse Ox 97% on R/A; Weight 108.41 kg; iw Height 5 ft. 5 in. ; Pain 6/10; 22:00 BP 138 / 60; Pulse 74; Resp 18; Pulse Ox 98% ; vc1 20:05 Body Mass Index 39.77 (108.41 kg, 165.1 cm) iw 20:05 Pain Scale: Adult iw MDM: 20:12 Patient medically screened. rt 06/06 01:06 Differential diagnosis: Open fracture, laceration. Data reviewed: vital signs, nurses rt notes, radiologic studies. Independent interpretation of the following test(s) in the Emergency Department X-Ray: My interpretation is No fracture or foreign body seen on interpretation. Of the x-ray images. ED course: I discussed wound care at length with the patient. At this time, I believe that removal of toenail with nailbed repair more likely to cause worse outcome as compared to letting it heal on its own. Patient is agreeable with this plan. I discussed keeping clean as well as return precautions for signs of infection. Stable for outpatient care, return precautions discussed.. 06/05 20:13 Order name: XRAY Foot LEFT 3 View; Complete Time: 21:09 rt 06/05 20:34 Order name: Wound Care; Complete Time: 22:13 rt Administered Medications: 06/05 21:16 Drug: Boostrix Tdap IM 0.5 ml Route: IM; Site: right deltoid; vc1 22:13 Follow up: Response: (VIS) Vaccine information sheet provided today. Questions and/or vc1 concerns addressed. VIS edition date: Jun 09, 2021.; No adverse reaction 21:42 Not Given (Other Intervention Used): Tetanus-Diphtheria Toxoid IM Adult 0.5 ml IM once; vc1 Provide Vaccine Information Statement (VIS). Disposition Summary: 06/05/23 21:58 Discharge Ordered Location: Home rt Problem: new rt Symptoms: have improved rt Condition: Stable rt Diagnosis - Laceration to nail of left great toe rt Followup: rt - With: Private Physician - When: 7 - 10 days - Reason: Discharge Instructions: - Discharge Summary Sheet rt - Nail Bed Injury rt Forms: - Medication Reconciliation Form rt - Thank You Letter rt - Antibiotic Education rt - Prescription Opioid Use rt - Patient Portal Instructions rt Signatures: Dispatcher [employer] Deidre Mayfield RN RN iw Tiffany Lopez RN RN vc1 Real Ferrer MD MD rt
--- NOTE | 2023-06-05 21:59 | ER ---
Nurse's Notes [facility] Name: Carla Pantoja Age: 73 yrs Sex: Female : 1950 Arrival Date: 06/05/2023 Time: 19:40 Bed 9 Private MD: Diagnosis: Laceration to nail of left great toe Presentation: 06/05 20:02 Chief complaint: Patient states: dropped a leaf blower on her left big toe and it split iw toenail , was bleeding , dressing applied [employer]. Coronavirus screen: At this time, the client does not indicate any symptoms associated with coronavirus-19. Ebola Screen: Patient negative for fever greater than or equal to 101.5 degrees Fahrenheit, and additional compatible Ebola Virus Disease symptoms Patient denies exposure to infectious person. Patient denies travel to an Ebola-affected area in the 21 days before illness onset. No symptoms or risks identified at this time. Initial Sepsis Screen: Does the patient meet any 2 criteria? No. Patient's initial sepsis screen is negative. Does the patient have a suspected source of infection? No. Patient's initial sepsis screen is negative. Risk Assessment: Do you want to hurt yourself or someone else? Patient reports no desire to harm self or others. Onset of symptoms was June 05, 2023. 20:02 Method Of Arrival: Ambulatory iw 20:02 Acuity: LAUREEN 3 iw Historical: - Allergies: 20:03 Morphine; iw - PMHx: 20:03 Anemia; Hypothyroidism; reflux; iw - PSHx: 20:03 hysterectomy; iw - Immunization history:: Last tetanus immunization: unknown. - Social history:: Smoking status: Patient denies any tobacco usage or history of. - Family history:: not pertinent. Screenin:13 [facility] ED Fall Risk Assessment (Adult) History of falling in the last 3 months, vc1 including since admission No falls in past 3 months (0 pts) Confusion or Disorientation No (0 pts) Intoxicated or Sedated No (0 pts) Impaired Gait No (0 pts) Mobility Assist Device Used No (0 pt) Altered Elimination No (0 pt) Score/Fall Risk Level 0 - 2 = Low Risk Oriented to surroundings, Maintained a safe environment, Educated pt \T\ family on fall prevention, incl call for assistance when getting out of bed. Abuse screen: Denies threats or abuse. Nutritional screening: No deficits noted. Tuberculosis screening: No symptoms or risk factors identified. Assessment: 22:14 Reassessment: No changes from previously documented assessment. Patient and/or family vc1 updated on plan of care and expected duration. Pain level reassessed. Patient is alert, oriented x 3, equal unlabored respirations, skin warm/dry/pink. 22:14 General: Appears in no apparent distress. uncomfortable, Behavior is cooperative, vc1 appropriate for age. Pain: Complains of pain in Right first toenail Pain does not radiate. Pain currently is 10 out of 10 on a pain scale. Quality of pain is described as throbbing, Pain began suddenly, Alleviated by rest. Neuro: Level of Consciousness is awake, alert, obeys commands, Oriented to person, place, time, situation, Appropriate for age. Cardiovascular: No deficits noted. Respiratory: Airway is patent Respiratory effort is even, unlabored, Respiratory pattern is regular, symmetrical. GI: No deficits noted. No signs and/or symptoms were reported involving the gastrointestinal system. : No deficits noted. No signs and/or symptoms were reported regarding the genitourinary system. EENT: No deficits noted. No signs and/or symptoms were reported regarding the EENT system. Derm: Wound noted Right first toenail. Musculoskeletal: Swelling present in Right first toenail. Vital Signs: 20:05 BP 147 / 62; Pulse 78; Resp 18; Temp 98.4; Pulse Ox 97% on R/A; Weight 108.41 kg; iw Height 5 ft. 5 in. ; Pain 6/10; 22:00 BP 138 / 60; Pulse 74; Resp 18; Pulse Ox 98% ; vc1 20:05 Body Mass Index 39.77 (108.41 kg, 165.1 cm) iw 20:05 Pain Scale: Adult iw ED Course: 19:42 Patient arrived in ED. jj6 19:58 Real Ferrer MD is Attending Physician. rt 20:03 Triage completed. iw 20:05 Arm band placed on. iw 21:03 XRAY Foot LEFT 3 View In Process Unspecified. EDMS 21:30 Wound care: to ripped up and broken toenail of greater left toe. vc1 21:40 Tiffany Lopez RN is Primary Nurse. vc1 22:23 No provider procedures requiring assistance completed. Patient did not have IV access vc1 during this emergency room visit. 22:30 Provided Education on: wound care. vc1 Administered Medications: 21:16 Drug: Boostrix Tdap IM 0.5 ml Route: IM; Site: right deltoid; vc1 22:13 Follow up: Response: (VIS) Vaccine information sheet provided today. Questions and/or vc1 concerns addressed. VIS edition date: Jun 09, 2021.; No adverse reaction 21:42 Not Given (Other Intervention Used): Tetanus-Diphtheria Toxoid IM Adult 0.5 ml IM once; vc1 Provide Vaccine Information Statement (VIS). Medication: 22:53 VIS not applicable for this client. vc1 Outcome: 21:58 Discharge ordered by . rt 22:23 Discharged to home ambulatory. vc1 22:23 Condition: good 22:23 Discharge instructions given to patient, Instructed on discharge instructions, follow vc1 up and referral plans. wound care, Demonstrated understanding of instructions, follow-up care, wound care. 22:30 Patient left the ED. vc1 Signatures: Dispatcher [employer] EDMS Deidre Webster RN RN iw Gosia Guzman [id number] Tiffany Lopez RN RN vc1 Real Ferrer MD MD rt Corrections: (The following items were deleted from the chart) 20:05 20:05 Pulse 78bpm; Resp 18bpm; Pulse Ox 97% RA; Temp 98.4F; 108.41 kg; Height 5 ft. 5 iw in.; BMI: 39.7; Pain 6/10, Adult; iw 22:55 22:54 Provided Education on: wound care. vc1 vc1 22:56 22:56 Patient left the ED. vc1 vc1
[2023-06-05 23:11] VITALS: TEMP 98.4
[2023-06-05 23:13] VITALS: BP 138/60; O2SAT 98
== END 2023-06-05 22:56 | disposition home or self-care (01) ==
LOC: ER 19:40
DX: S91.212A Laceration without foreign body of left great toe with damage to nail, initial encounter (principal); Z88.5 Allergy status to narcotic agent

== ENCOUNTER 2024-03-01 11:22 | Emergency (ER) | payer OTHER ==
[2024-03-01] MEDS ORDERED: HYDROCODONE/APAP 5/325 MG TAB ONE (12:50)
[2024-03-01 13:09] LABS: Hematocrit 38.7 % (36.0-45.0); Hemoglobin 12.6 g/dL (12.0-15.0); MCH 30.5 pg (27.0-35.0); MCHC 32.4 g/dL (32.0-36.0); MCV 94.2 fL (80-100); MPV 10.1 fL (7.6-11.3); Platelets 131 thou/uL (152-406); RBC Red Blood Cell Count 4.11 M/uL (3.86-4.86); Red Cell Distribution Width 19.1 % (12.1-15.2)
[2024-03-01 13:20] LABS: Anion Gap 8.1 mEq/L (5.0-15.0); Potassium 4.1 mEq/L (3.5-5.1)
--- NOTE | 2024-03-01 13:24 | RAD REPORT ---
EXAM DESCRIPTION: CT - Head Brain Wo Cont - 03/01/2024 1:07 pm CLINICAL HISTORY: Syncope COMPARISON: 2021 TECHNIQUE: Computed axial tomography of the head was obtained. IV contrast was not requested. All CT scans are performed using dose optimization technique as appropriate and may include automated exposure control or mA/KV adjustment according to patient size. FINDINGS: An intracranial bleed is not seen The ventricles are normal in caliber No significant hypodense areas within the brain visualized No extra-axial fluid collection is noted. Fluid within the sinuses/ mastoids is not seen IMPRESSION: No acute intracranial abnormality is seen If patient's symptoms persist MRI of the brain would be recommended
--- NOTE | 2024-03-01 13:26 | RAD REPORT ---
EXAM DESCRIPTION: RAD - Shoulder Right 2 View - 03/01/2024 1:19 pm CLINICAL HISTORY: Right shoulder pain FINDINGS: No fracture or dislocation is seen. Moderate osteoarthritis AC joint. Osteoporosis Right breast implant present
--- NOTE | 2024-03-01 13:28 | RAD REPORT ---
EXAM DESCRIPTION: RAD - Humerus Right - 03/01/2024 1:20 pm CLINICAL HISTORY: Right arm pain status post fall FINDINGS: No fracture is seen. Osteoporosis
--- NOTE | 2024-03-01 13:46 | EDPHYS ---
Physician Documentation [facility] Name: Carla Pantoja Age: 73 yrs Sex: Female : 1950 Arrival Date: 03/01/2024 Time: 11:22 Bed 4 Private MD: ED Physician Alexandrea Morin HPI: 03/01 13:51 This 73 yrs old Female presents to ER via Ambulatory with complaints of Fall gb1 Injury - LOC, Shoulder Pain. 13:51 73-year-old female slipped and fell in the shower. She has right right gb1 shoulder pain, and has pain with range of motion. She did not hit her head and did not having any loss of consciousness. She is able to ambulate after the fall without assistance.. Historical: - Allergies: 11:47 Morphine; nj1 - PMHx: 11:47 Anemia; Hypothyroidism; reflux; Hypertensive disorder; nj1 - Immunization history:: Client reports having NOT received the Covid vaccine. - Infectious Disease History:: Denies. - Immunization history: Last tetanus immunization: - up to date. - Social history:: Smoking status: Patient denies any tobacco usage or history of. Exam: 13:51 Constitutional: This is a well developed, well nourished patient who is awake, alert, gb1 and in no acute distress. Head/Face: Normocephalic, atraumatic. Eyes: Pupils equal round and reactive to light, extra-ocular motions intact. Lids and lashes normal. Conjunctiva and sclera are non-icteric and not injected. Cornea within normal limits. Periorbital areas with no swelling, redness, or edema. ENT: Nares patent. No nasal discharge, no septal abnormalities noted. Tympanic membranes are normal and external auditory canals are clear. Oropharynx with no redness, swelling, or masses, exudates, or evidence of obstruction, uvula midline. Mucous membranes moist. Neck: Trachea midline, no thyromegaly or masses palpated, and no cervical lymphadenopathy. Supple, full range of motion without nuchal rigidity, or vertebral point tenderness. No Meningismus. Chest/axilla: Normal chest wall appearance and motion. Nontender with no deformity. No lesions are appreciated. Cardiovascular: Regular rate and rhythm with a normal S1 and S2. No gallops, murmurs, or rubs. Normal PMI, no JVD. No pulse deficits. Respiratory: Lungs have equal breath sounds bilaterally, clear to auscultation and percussion. No rales, rhonchi or wheezes noted. No increased work of breathing, no retractions or nasal flaring. Abdomen/GI: Soft, non-tender, with normal bowel sounds. No distension or tympany. No guarding or rebound. No evidence of tenderness throughout. Back: No spinal tenderness. No costovertebral tenderness. Full range of motion. Skin: Warm, dry with normal turgor. Normal color with no rashes, no lesions, and no evidence of cellulitis. MS/ Extremity: Pulses equal, no cyanosis. Neurovascular intact, no range of motion of the right upper extremity Vital Signs: 11:45 BP 155 / 60; Pulse 70; Resp 18; Temp 97(TE); Pulse Ox 99% on R/A; Weight 108.41 kg; nj1 Height 5 ft. 5 in. ; Pain 10/10; 11:56 BP 139 / 56; Pulse 70; Resp 16; Pulse Ox 98% ; ko1 12:46 BP 137 / 57; Pulse 64; Resp 16; Pulse Ox 100% ; ko1 13:49 BP 130 / 68; Pulse 68; Resp 16; Pulse Ox 99% ; ko1 11:45 Body Mass Index 39.77 (108.41 kg, 165.1 cm) nj1 11:45 Pain Scale: Adult nj1 Ramona Coma Score: 12:00 Eye Response: spontaneous(4). Motor Response: obeys commands(6). Verbal Response: ko1 oriented(5). Total: 15. Trauma Score (Adult): 12:00 Eye Response: spontaneous(1); Verbal Response: oriented(1); Motor Response: obeys ko1 commands(2); Systolic BP: > 89 mm Hg(4); Respiratory Rate: 10 to 29 per min(4); Ramona Score: 15; Trauma Score: 12 MDM: 11:38 Patient medically screened. 1 13:51 Differential diagnosis: abrasion, contusion, fracture, sprain, strain. Data reviewed: 1 vital signs, nurses notes, lab test result(s), CBC, white blood cell count, hemoglobin, hematocrit, platelets, radiologic studies, plain films. 13:51 ED course: 73-year-old female status post ground-level fall here with a traumatic gb1 rotator cuff injury of the right shoulder. X-rays were negative for occult fracture or dislocation. I placed her in a sling and given her pain control and referred her to Dr. Farrar the orthopedic surgeon, for outpatient consultation for rotator cuff repair.. 03/01 12:49 Order name: CBC w/o diff; Complete Time: 13:22 gb1 03/01 12:49 Order name: BMP; Complete Time: 13:22 gb1 03/01 12:49 Order name: Shoulder Right (2 View) XRAY; Complete Time: 13:32 gb1 03/01 12:49 Order name: Humerus Right XRAY; Complete Time: 13:32 gb1 03/01 12:49 Order name: CT Head Brain wo Cont; Complete Time: 13:32 gb1 03/01 13:55 Order name: Sling; Complete Time: 13:57 kc6 Administered Medications: 12:52 Drug: HYDROcodone-acetaminophen PO 5 mg-325 mg 1 tabs PO once Route: PO; ko1 13:15 Follow up: Response: No adverse reaction; Pain is decreased ko1 Disposition Summary: 03/01/24 13:45 Discharge Ordered Notes: Location: Home gb1 Condition: Stable gb1 Diagnosis - Fall on same level from slipping, tripping and stumbling with subsequent striking gb1 against object - Injury of muscle(s) and tendon(s) of the rotator cuff of shoulder gb1 Followup: gb1 - With: Shashank Farrar MD - When: Upon discharge from the Emergency Department - Reason: Continuance of care, Re-evaluation by your physician Discharge Instructions: - Discharge Summary Sheet gb1 - Rotator Cuff Tear gb1 Forms: - Medication Reconciliation Form gb1 - Antibiotic Education gb1 - Prescription Opioid Use gb1 - Patient Portal Instructions gb1 - Leadership Thank You Letter gb1 Prescriptions: - Tramadol 50 mg Oral Tablet - take 1 tablet ORAL route every 8 hours as needed; 12 tablet; Refills: 0, gb1 Product Selection Permitted Signatures: Dispatcher [employer] Liza Agarwal RN RN [id number] Helen Moore RN RN ko1 Elba Santamaria RN RN nj1 Alexandrea Morin MD MD gb1 Corrections: (The following items were deleted from the chart) 12:49 12:49 Humerus Right+RAD.RAD.BRZ ordered. EDMS EDMS 12:49 12:49 CBC without Diff+H.LAB.BRZ ordered. EDMS EDMS 12:49 12:49 BASIC METABOLIC PANEL+C.LAB.BRZ ordered. EDMS EDMS 12:49 12:49 Head Brain Wo Cont+CT.RAD.BRZ ordered. EDMS EDMS
--- NOTE | 2024-03-01 13:46 | ER ---
Nurse's Notes [facility] Name: Carla Pantoja Age: 73 yrs Sex: Female : 1950 Arrival Date: 03/01/2024 Time: 11:22 Bed 4 Private MD: Diagnosis: Fall on same level from slipping, tripping and stumbling with subsequent striking against object;Injury of muscle(s) and tendon(s) of the rotator cuff of shoulder Presentation: 03/01 11:45 Chief complaint: Patient states: fell while at the shower today. She thinks she may nj1 have blacked out. Complains of right shoulder and back pain. Ambulatory. Coronavirus screen: Vaccine status: Patient reports being unvaccinated. Ebola Screen: Patient denies travel to an Ebola-affected area in the 21 days before illness onset. Initial Sepsis Screen: Does the patient meet any 2 criteria? No. Patient's initial sepsis screen is negative. Does the patient have a suspected source of infection? No. Patient's initial sepsis screen is negative. Risk Assessment: Do you want to hurt yourself or someone else? Patient reports no desire to harm self or others. Onset of symptoms was March 01, 2024. 11:45 Method Of Arrival: Ambulatory [facility] 11:45 Acuity: LAUREEN 3 nj1 12:00 Care prior to arrival: None. Mechanism of Injury: Fall from standing position. Trauma ko1 event details: Injury occurred in the [facility], Injury occurred: at home. Trauma Activation: Not Applicable Physician: ED Physician; Name: ; Notified At: ; Arrived At: Physician: General Surgeon; Name: ; Notified At: ; Arrived At: Physician: Radiology; Name: ; Notified At: ; Arrived At: Physician: Respiratory; Name: ; Notified At: ; Arrived At: Physician: Lab; Name: ; Notified At: ; Arrived At: Historical: - Allergies: 11:47 Morphine; nj1 - PMHx: 11:47 Anemia; Hypothyroidism; reflux; Hypertensive disorder; nj1 - Immunization history:: Client reports having NOT received the Covid vaccine. - Infectious Disease History:: Denies. - Immunization history: Last tetanus immunization: - up to date. - Social history:: Smoking status: Patient denies any tobacco usage or history of. Screenin:[facility] Fall Risk Assessment (Adult) History of falling in the last 3 months, ko1 including since admission Yes- single mechanical fall (1 pt) Confusion or Disorientation No (0 pts) Intoxicated or Sedated No (0 pts) Impaired Gait No (0 pts) Mobility Assist Device Used No (0 pt) Altered Elimination No (0 pt) Score/Fall Risk Level 0 - 2 = Low Risk Oriented to surroundings, Maintained a safe environment, Educated pt \T\ family on fall prevention, incl call for assistance when getting out of bed, Assessed \T\ reinforced patient's understanding of fall precautions, Provided non-skid footwear, Hourly rounding (assess needs \T\ fall precautionary measures) done, Used ambulatory aids as needed (educated on \T\ assisted with). Abuse screen: Denies threats or abuse. Denies injuries from another. Nutritional screening: No deficits noted. Tuberculosis screening: No symptoms or risk factors identified. Primary Survey: 12:00 NO uncontrolled hemorrhage observed. A: The client is awake and alert. The airway is ko1 patent. The client is alert. Breathing/Chest: Spontaneous respiratory effort, equal unlabored respirations, breath sounds clear bilaterally, regular pattern, symmetrical chest rise and fall. Respiratory effort: spontaneous, unlabored. Circulation: No external hemorrhage present. Regular and strong central pulse, skin warm/dry/normal color. Disability Pupils are equal, round, reactive to light and accommodation. Client is alert. Exposure/Environment: There is no evidence of uncontrolled external bleeding. A warming method has been applied: A warm blanket has been provided to the patient. 14:00 Reassessment Alertness and Airway: Awake and alert. The airway is patent. Airway Patent ko1 Breathing: Spontaneous respiratory effort, equal unlabored respirations, breath sounds clear bilaterally, regular pattern with symmetrical chest rise and fall. Respiratory effort Spontaneous Unlabored Circulation: No external hemorrhage noted. Regular and strong central pulse, skin warm/dry/normal color. Disability: Pupils Pupils are equal, round, reactive to light and accomodation. Alert. Assessment: 11:53 General: Appears in no apparent distress. uncomfortable, Behavior is calm, cooperative, ko1 appropriate for age. Pain: Complains of pain in anterior aspect of right shoulder and posterior aspect of right shoulder. Neuro: No deficits noted. Cardiovascular: No deficits noted. Respiratory: No deficits noted. GI: No deficits noted. : No deficits noted. EENT: No deficits noted. Derm: No deficits noted. Musculoskeletal: Reports pain in right shoulder and back. Vital Signs: 11:45 BP 155 / 60; Pulse 70; Resp 18; Temp 97(TE); Pulse Ox 99% on R/A; Weight 108.41 kg; nj1 Height 5 ft. 5 in. ; Pain 10/10; 11:56 BP 139 / 56; Pulse 70; Resp 16; Pulse Ox 98% ; ko1 12:46 BP 137 / 57; Pulse 64; Resp 16; Pulse Ox 100% ; ko1 13:49 BP 130 / 68; Pulse 68; Resp 16; Pulse Ox 99% ; ko1 11:45 Body Mass Index 39.77 (108.41 kg, 165.1 cm) nj1 11:45 Pain Scale: Adult nj1 [place] Coma Score: 12:00 Eye Response: spontaneous(4). Motor Response: obeys commands(6). Verbal Response: ko1 oriented(5). Total: 15. Trauma Score (Adult): 12:00 Eye Response: spontaneous(1); Verbal Response: oriented(1); Motor Response: obeys ko1 commands(2); Systolic BP: > 89 mm Hg(4); Respiratory Rate: 10 to 29 per min(4); Pio Score: 15; Trauma Score: 12 ED Course: 11:28 Patient arrived in ED. mg5 11:38 Alexandrea Morin MD is Attending Physician. gb1 11:43 Helen Moore, RN is Primary Nurse. ko1 11:47 Triage completed. nj1 11:47 Arm band placed on. nj1 11:53 Patient has correct armband on for positive identification. Allergy band placed. Bed in ko1 low position. Call light in reach. Side rails up X2. Client placed on continuous cardiac and pulse oximetry monitoring. NIBP monitoring applied. immersion metalcleaner on. 12:00 O2 via RA. ko1 13:01 BMP Sent. ko1 13:01 CBC w/o diff Sent. ko1 13:02 Initial lab(s) drawn, by me, sent to lab. Inserted saline lock: 22 gauge in right ko1 antecubital area, using aseptic technique. Blood collected. 13:09 CT Head Brain wo Cont In Process Unspecified. EDMS 13:21 Shoulder Right (2 View) XRAY In Process Unspecified. EDMS 13:21 Humerus Right XRAY In Process Unspecified. EDMS 13:45 Shashank Farrar MD is Referral Physician. gb1 13:49 No provider procedures requiring assistance completed. IV discontinued, intact, ko1 bleeding controlled, No redness/swelling at site. Pressure dressing applied. 14:03 Provided Education on: NA. ko1 14:13 Thermoregulation: warm blanket given to patient. ko1 Administered Medications: 12:52 Drug: HYDROcodone-acetaminophen PO 5 mg-325 mg 1 tabs PO once Route: PO; ko1 13:15 Follow up: Response: No adverse reaction; Pain is decreased ko1 Medication: 11:53 VIS not applicable for this client. ko1 Intake: 12:00 PO: 120ml (Water); Total: 120ml. ko1 Output: 12:00 Urine: 500ml (Voided); Total: 500ml. ko1 Outcome: 12:00 Patient's length of stay was not longer than 2 hours. ko1 13:45 Discharge ordered by . gb1 14:03 Discharged to home ambulatory, with family, ko1 14:03 Condition: good 14:03 Discharge instructions given to patient, family, Instructed on discharge instructions, follow up and referral plans. medication usage, Demonstrated understanding of instructions, follow-up care, medications, Prescriptions given X 1, 14:14 Patient left the ED. ko1 Signatures: Dispatcher [employer] EDMS Helen Moore, RN RN ko1 Elba Santamaria RN RN nj1 Gabriella Holland mg5 Alexandrea Morin MD MD gb1
[2024-03-01 14:48] VITALS: BP 130/68; TEMP 97; O2SAT 99
== END 2024-03-01 14:14 | disposition home or self-care (01) ==
LOC: ER 11:22
DX: S46.001A Unspecified injury of muscle(s) and tendon(s) of the rotator cuff of right shoulder, initial encounter (principal); W01.10XA Fall on same level from slipping, tripping and stumbling with subsequent striking against unspecified object, initial encounter; I10 Essential (primary) hypertension; Z88.5 Allergy status to narcotic agent
CPT/HCPCS: 36415; 70450; 80048; 85027; 99285

== ENCOUNTER 2024-03-06 19:02 | Emergency (ER) | payer OTHER ==
--- NOTE | 2024-03-06 20:55 | RAD REPORT ---
EXAM DESCRIPTION: RAD - Chest Pa And Lat (2 Views) - 03/06/2024 8:43 pm CLINICAL HISTORY: chest pain COMPARISON: Chest Pa And Lat (2 Views) dated 08/25/2019 FINDINGS: Lines: None. Lungs: No evidence of edema or pneumonia. Pleural: No significant pleural effusions or pneumothorax. Cardiac: Cardiomegaly. Mediastinum: Within normal limits. Bones: No acute fractures. Other: Bilateral breast prostheses. IMPRESSION: No acute cardiopulmonary disease.
--- NOTE | 2024-03-06 21:03 | ER ---
Nurse's Notes [facility] Name: Carla Pantoja Age: 73 yrs Sex: Female : 1950 Arrival Date: 03/06/2024 Time: 19:02 Bed 10 Private MD: Tyler Fulton V Diagnosis: Contusion of front wall of thorax-bruising;Fall on same level, unspecified Presentation: 03/06 19:20 Chief complaint: Patient states: noticed yellow bruising to anterior chest wall today; km8 pt fell on Saturday03/01/24; seen here; pt reports pain to chest wall. Coronavirus screen: Client denies travel out of the [place] in the last 14 days. Ebola Screen: No symptoms or risks identified at this time. Initial Sepsis Screen: Does the patient meet any 2 criteria? No. Patient's initial sepsis screen is negative. Does the patient have a suspected source of infection? No. Patient's initial sepsis screen is negative. Risk Assessment: Do you want to hurt yourself or someone else? Patient reports no desire to harm self or others. Onset of symptoms was January 30, 2024. 19:20 Method Of Arrival: Ambulatory km8 19:20 Acuity: LAUREEN 4 km8 Triage Assessment: 19:23 General: Appears in no apparent distress. comfortable, Behavior is calm, cooperative, km8 appropriate for age. Pain: Complains of pain in chest Pain currently is 10 out of 10 on a pain scale. Quality of pain is described as aching. EENT: No signs and/or symptoms were reported regarding the EENT system. Neuro: Level of Consciousness is awake, alert, obeys commands, Oriented to person, place, time, situation. Cardiovascular: Denies chest pain, shortness of breath, Patient's skin is warm and dry. Respiratory: Airway is patent Respiratory effort is even, unlabored, Respiratory pattern is regular, symmetrical. GI: No signs and/or symptoms were reported involving the gastrointestinal system. : No signs and/or symptoms were reported regarding the genitourinary system. Derm: Skin is intact, is healthy with good turgor, Skin is dry, Skin is pink, warm \T\ dry. normal, Skin temperature is warm Bruising that is yellow, on chest. Musculoskeletal: No signs and/or symptoms reported regarding the musculoskeletal system. Circulation, motion, and sensation intact. Range of motion: limited in right shoulder. Historical: - Allergies: 19:22 Morphine; 19:22 Tramadol HCl; - Home Meds: 19:22 rosuvastatin oral [Active]; Protonix Oral [Active]; levothyroxine oral [Active]; 19:23 hydrocodone-acetaminophen Oral [Active]; - PMHx: 19:22 Anemia; Hypertensive disorder; Hypothyroidism; reflux; - PSHx: 19:22 hysterectomy; breast surgery (hysterectomy); - Immunization history:: Adult Immunizations up to date. - Infectious Disease History:: Denies. - Social history:: Smoking status: Patient/guardian denies using tobacco, the patient reports quitting approximately 11 years ago, Patient/guardian denies using alcohol, street drugs. Screenin:20 [facility] ED Fall Risk Assessment (Adult) History of falling in the last 3 months, 8 including since admission Yes- single mechanical fall (1 pt) Confusion or Disorientation No (0 pts) Intoxicated or Sedated No (0 pts) Impaired Gait No (0 pts) Mobility Assist Device Used No (0 pt) Altered Elimination No (0 pt) Score/Fall Risk Level 0 - 2 = Low Risk Oriented to surroundings, Maintained a safe environment, Educated pt \T\ family on fall prevention, incl call for assistance when getting out of bed, Assessed \T\ reinforced patient's understanding of fall precautions. Abuse screen: Denies threats or abuse. Denies injuries from another. Nutritional screening: No deficits noted. Tuberculosis screening: No symptoms or risk factors identified. Assessment: 20:20 Reassessment: X-ray notified of pending order. jb4 20:58 General: Appears in no apparent distress. Behavior is calm, cooperative. Pain: tl4 Complains of pain in chest and right shoulder. Neuro: Level of Consciousness is awake, alert, obeys commands, Oriented to person, place, time, situation, Moves all extremities. Full function Gait is steady, Speech is normal. Cardiovascular: Capillary refill < 3 seconds Patient's skin is warm and dry. Respiratory: Airway is patent Respiratory effort is even, unlabored, Respiratory pattern is regular, symmetrical, Breath sounds are clear bilaterally. GI: No signs and/or symptoms were reported involving the gastrointestinal system. : No signs and/or symptoms were reported regarding the genitourinary system. EENT: No signs and/or symptoms were reported regarding the EENT system. Derm: No signs and/or symptoms reported regarding the dermatologic system. Musculoskeletal: Bruising to chest. Vital Signs: 19:20 BP 117 / 101; Pulse 73; Resp 16; Temp 98(O); Pulse Ox 95% on R/A; Weight 108.41 kg (R); km8 Height 5 ft. 5 in. (R); Pain 10/10; 19:20 Body Mass Index 39.77 (108.41 kg, 165.1 cm) km8 19:20 Pain Scale: Adult km8 [place] Score: 19:20 Eye Response: spontaneous(4). Motor Response: obeys commands(6). Verbal Response: km8 oriented(5). Total: 15. ED Course: 19:03 Patient arrived in ED. rg4 19:04 Tyler Fulton MD is Private Physician. rg4 19:20 Patient has correct armband on for positive identification. Placed in gown. Bed in low km8 position. Call light in reach. Side rails up X 1. Pulse ox on. NIBP on. Warm blanket given. 19:21 Triage completed. km8 19:23 Arm band placed on right wrist. km8 19:24 Bindu Webster MD is Attending Physician. sw6 19:32 Patient placed in waiting room, Patient notified of wait time. km8 20:44 Attending Physician role handed off by Bindu Webster MD [facility] 20:44 Dante Torres MD is Attending Physician. [facility] 20:45 Chest Pa And Lat (2 Views) In Process Unspecified. EDMS 20:57 Ignacio Tan, ZOE is Primary Nurse. tl4 21:02 Tyler Fulton MD is Referral Physician. [facility] 21:28 Provided Education on: d/c teaching. km8 21:28 No provider procedures requiring assistance completed. Patient did not have IV access km8 during this emergency room visit. Administered Medications: No medications were administered Medication: 21:28 VIS not applicable for this client. km8 Outcome: 21:02 Discharge ordered by . [facility] 21:29 Discharged to home ambulatory, with family, km8 21:29 Condition: good 21:29 Discharge instructions given to patient, family, Instructed on discharge instructions, follow up and referral plans. Demonstrated understanding of instructions, follow-up care, 21:30 Patient left the ED. km8 Signatures: Dispatcher [employer] EDDante Leon MD MD cha Garcia, Rubi rg4 Michel Barba RN RN jb4 Marilou North RN RN km8 Ignacio Tan RN RN tl4 Bindu Webster MD MD sw6
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
[2024-03-07 14:56] VITALS: BP 117/101; TEMP 98; O2SAT 95
== END 2024-03-06 21:30 | disposition home or self-care (01) ==
LOC: ER 19:02
DX: S20.211A Contusion of right front wall of thorax, initial encounter (principal); W18.30XA Fall on same level, unspecified, initial encounter; I10 Essential (primary) hypertension; Z88.5 Allergy status to narcotic agent
CPT/HCPCS: 71046; 99283